=== PATIENT | female | born 1950 | race Caucasian/White ===

== ENCOUNTER 2017-10-21 00:45 | Observation (INO) | payer MEDICARE, MEDICAID ==
[2017-10-21] VITALS (9 sets, daily range): BP systolic 108–180; BP diastolic 58–90; PULSE 72–98; RESP 17–28; TEMP 97.4–98.6; O2SAT 94–99
[~2017-10-21] VITALS: Ht 172.7 cm; Wt 97.0 kg
[~2017-10-21 00:45] MED LIST: ACYC-101 PO; CARV3.125 PO; FURO1TAB62 PO; GABA100C4 PO; LOSA25TA PO; PANT40TA3 PO; PERC10TA27 PO; PRAV10TA PO; XARE20TA PO
--- NOTE | 2017-10-21 00:55 | PD ---
HPI Chief Complaint: Chest Pain Time Seen by Provider: 00:47 Travel History International Travel<30 days: No Contact w/Intl Traveler<30days: No Traveled to known affect area: No History of Present Illness HPI 67 y/o female presents with central chest pain and shortness of breath for the past couple days. She states that earlier this evening at 8 PM she went to an urgent care and had a EKG that was abnormal and was advised to come here to the ER. She states she did not want to come by ambulance and was just able to get around to it now. She states she did not take an aspirin yet today. She denies any other concurrent complaints. She states she had heart stents in 2015 with the [facility] heart group. She states out in [place] in July she was told she had a heart attack but did not get another stent. She denies specific modifying factors. Quality is pressure. Severity is moderate. PFSH Past Medical History Hx Anticoagulant Therapy: Yes (XARELTO) Asthma: No Autoimmune Disease: No Anxiety: No Depression: No Heart Rhythm Problems: No Cancer: Yes (L BREAST CA; LUMPECTOMY) Cardiac Catheterization: Yes Cardiovascular Problems: Yes High Cholesterol: Yes Chemotherapy: No Cerebrovascular Accident: Yes Diabetes: No Diminished Hearing: No Diverticulitis: Yes Endocrine: No Gastrointestinal Disorders: No GERD: No Glaucoma: No Genitourinary: Yes (UTI'S) Headaches: No Hepatitis: No Hiatal Hernia: Yes Hypertension: Yes Immune Disorder: No Implanted Vascular Access Dvce: No Musculoskeletal: No Neurologic: Yes (PT REPORTS HX OF STROKE X2 2012) Psychiatric: No Reproductive: No Respiratory: No Integumentary: Yes (CHRONIC RASH) Immunizations Current: No Migraines: No Radiation Therapy: Yes Renal Failure: Yes (HX OF HOSPITALIZED LAST YEAR) Seizures: No Thyroid Disease: No Ulcer: No ?: Not Menopausal: Yes : 4 Para: 3 Miscarriage: 1 Past Surgical History Cardiac Surgery: No Coronary Stent: Yes (2) Eye Surgery: Yes (CATARACT RIGHT) Gynecologic Surgery: No Hysterectomy: No Pacemaker: No Tonsillectomy: Yes Other Surgery: Yes (LUMPECTOMY) Social History Alcohol Use: No Tobacco Use: No Substance Use: No Allergies-Medications (Allergen,Severity, Reaction): Coded Allergies: diphenhydramine (Unverified Adverse Reaction, Severe, Migraine, 04/04/17) MIGRAINE lorazepam (Unverified Adverse Reaction, Severe, Psychosis, 04/04/17) PSYCH SYMPTOMS Reported Meds & Prescriptions Reported Meds & Active Scripts Active Percocet (Oxycodone-Acetaminophen) 10-325 mg Tab 1 Tab PO Q6H PRN Reported Prednisone 20 Mg Tab 20 Mg PO DAILY Aspirin 81 Mg Chew 81 Mg CHEW DAILY Coreg (Carvedilol) 3.125 Mg Tab 3.125 Mg PO BID Review of Systems Except as stated in HPI: all other systems reviewed are Neg Physical Exam Narrative GENERAL: 67-year-old female in no apparent distress SKIN: Focused skin assessment warm/dry. HEAD: Atraumatic. Normocephalic. EYES: No scleral icterus. No injection or drainage. ENT: No nasal bleeding or discharge. Mucous membranes pink and moist. NECK: Trachea midline. No JVD. CARDIOVASCULAR: Regular rate and rhythm. RESPIRATORY: No accessory muscle use. Clear to auscultation. Breath sounds equal bilaterally. GASTROINTESTINAL: Abdomen soft, non-tender, nondistended. MUSCULOSKELETAL: No obvious deformities. No clubbing. No cyanosis. NEUROLOGICAL: Awake and alert. Motor grossly within normal limits. Normal speech. PSYCHIATRIC: Appropriate mood and affect; insight and judgment normal. Data Data Last Documented VS Vital Signs Date Time Temp Pulse Resp B/P (MAP) Pulse Ox O2 Delivery O2 Flow Rate FiO2 10/21/17 02:31 98.6 83 20 144/77 (99) 98 Room Air Orders Orders Electrocardiogram (10/21/17 00:47) B-Type Natriuretic Peptide (10/21/17 00:47) Ckmb (Isoenzyme) Profile (10/21/17 00:47) Complete Blood Count With Diff (10/21/17 00:47) Comprehensive Metabolic Panel (10/21/17 00:47) D-Dimer (10/21/17 00:47) Magnesium (Mg) (10/21/17 00:47) Prothrombin Time / Inr (Pt) (10/21/17 00:47) Act Partial Throm Time (Ptt) (10/21/17 00:47) Troponin I (10/21/17 00:47) Chest, Single Ap (10/21/17 00:47) Ecg Monitoring (10/21/17 00:47) Bilateral Bp Monitoring (10/21/17 00:47) Iv Access Insert/Monitor (3/3/18 00:47) Oximetry (10/21/17 00:47) Aspirin (Aspirin) (10/21/17 01:00) Sodium Chloride 0.9% Flush (Ns Flush) (10/21/17 01:00) Nitroglycerin Sl (Nitrostat Sl) (10/21/17 01:00) Ct Pulmonary Angiogram (10/21/17 01:54) Morphine Inj (Morphine Inj) (10/21/17 02:45) Ondansetron Inj (Zofran Inj) (10/21/17 02:45) Iohexol 350 Inj (Omnipaque 350 Inj) (10/21/17 02:48) Admit Order (Ed Use Only) (10/21/17 03:18) Activity Bed Rest With Brp (10/21/17 03:18) Vital Signs (Adult) Q4H (10/21/17 03:18) Cardiac Rhythm .As Directed (10/21/17 03:18) Notify Dr: Other .PRN (10/21/17 03:18) Notify DrQueenie Parameters (10/21/17 03:18) Resp Oxygen Nasal Cannula (10/21/17 ) Ckmb (Isoenzyme) Profile (10/21/17 03:18) Ckmb (Isoenzyme) Profile (10/21/17 06:18) Troponin I (10/21/17 03:18) Troponin I (10/21/17 06:18) Electrocardiogram (10/21/17 03:18) Electrocardiogram (10/21/17 06:18) ^ Obtain (10/21/17 03:18) Sodium Chloride 0.9% Flush (Ns Flush) (10/21/17 03:30) Sodium Chloride 0.9% Flush (Ns Flush) (10/21/17 09:00) Acupressure Therapist / Telemetry MARA.Q8H (10/21/17 03:18) Labs Laboratory Tests Test 10/21/17 00:50 White Blood Count 6.2 TH/MM3 Red Blood Count 4.18 MIL/MM3 Hemoglobin 12.6 GM/DL Hematocrit 37.3 % Mean Corpuscular Volume 89.2 FL Mean Corpuscular Hemoglobin 30.1 PG Mean Corpuscular Hemoglobin Concent 33.7 % Red Cell Distribution Width 16.1 % Platelet Count 223 TH/MM3 Mean Platelet Volume 8.2 FL Neutrophils (%) (Auto) 59.7 % Lymphocytes (%) (Auto) 28.2 % Monocytes (%) (Auto) 9.6 % Eosinophils (%) (Auto) 1.7 % Basophils (%) (Auto) 0.8 % Neutrophils # (Auto) 3.7 TH/MM3 Lymphocytes # (Auto) 1.8 TH/MM3 Monocytes # (Auto) 0.6 TH/MM3 Eosinophils # (Auto) 0.1 TH/MM3 Basophils # (Auto) 0.0 TH/MM3 CBC Comment DIFF FINAL Differential Comment Prothrombin Time 10.0 SEC Prothromb Time International Ratio 1.0 RATIO Activated Partial Thromboplast Time 24.3 SEC D-Dimer Quantitative (PE/DVT) 0.72 MG/L FEU Blood Urea Nitrogen 26 MG/DL Creatinine 1.10 MG/DL Random Glucose 118 MG/DL Total Protein 6.7 GM/DL Albumin 3.5 GM/DL Calcium Level 8.6 MG/DL Magnesium Level 1.7 MG/DL Alkaline Phosphatase 47 U/L Aspartate Amino Transf (AST/SGOT) 19 U/L Alanine Aminotransferase (ALT/SGPT) 25 U/L Total Bilirubin 0.3 MG/DL Sodium Level 142 MEQ/L Potassium Level 4.1 MEQ/L Chloride Level 110 MEQ/L Carbon Dioxide Level 22.5 MEQ/L Anion Gap 10 MEQ/L Estimat Glomerular Filtration Rate 50 ML/MIN Total Creatine Kinase 72 U/L Troponin I LESS THAN 0.02 NG/ML B-Type Natriuretic Peptide 61 PG/ML MDM Medical Decision Making Medical Screen Exam Complete: Yes Emergency Medical Condition: Yes Medical Record Reviewed: Yes (pmh confirmed) Interpretation(s) CBC & BMP Diagram 10/21/17 00:50 Total Protein 6.7, Albumin 3.5, Calcium Level 8.6, Magnesium Level 1.7, Alkaline Phosphatase 47, Aspartate Amino Transf (AST/SGOT) 19, Alanine Aminotransferase (ALT/SGPT) 25, Total Bilirubin 0.3 ct chest no pe Differential Diagnosis musculoskeletal, mi, gastritis..... Narrative Course will check labs, cxr and dose with aspirin and nitro and reeval ed workup no acute, agrees to [facility] observation Diagnosis Primary Impression: Chest pain Qualified Codes: R07.9 - Chest pain, unspecified Admitting Information Admitting Physician Requests: Observation Areli Calloway MD Oct 21, 2017 00:55
[2017-10-21] MEDS ORDERED: NITROGLYCERIN 0.4 MG SL 25 TABS/BTL SL ONE (01:00)
[2017-10-21] MEDS ORDERED: ASPIRIN 325 MG TAB PO ONE (01:00)
[2017-10-21] MEDS ORDERED: SODIUM CHLORIDE 0.9% FLUSH 10 ML FLUSH IVF PRN (01:00)
[2017-10-21 01:08] LABS: AUTOMATED NEUTROPHIL # 3.7 TH/MM3 (1.8-7.7); BASOPHIL % 0.8 % (0.0-2.0); EOSINOPHIL # 0.1 TH/MM3 (0-0.4); EOSINOPHIL % 1.7 % (0.0-4.0); HEMATOCRIT 37.3 % (35.0-46.0); HEMOGLOBIN 12.6 GM/DL (11.6-15.3); LYMPH % 28.2 % (9.0-44.0); LYMPHOCYTE # 1.8 TH/MM3 (1.0-4.8); MEAN CELL VOLUME 89.2 FL (80.0-100.0); MEAN CORPUSCULAR HEMOGLOBIN 30.1 PG (27.0-34.0); MEAN CORPUSCULAR HGB CONC 33.7 % (32.0-36.0); MEAN PLATELET VOLUME 8.2 FL (7.0-11.0); MONO % 9.6 % (0.0-8.0); MONOCYTE # 0.6 TH/MM3 (0-0.9); NEUT % 59.7 % (16.0-70.0); PLATELET COUNT 223 TH/MM3 (150-450); RED BLOOD COUNT 4.18 MIL/MM3 (4.00-5.30); RED CELL DISTRIBUTION WIDTH 16.1 % (11.6-17.2); WHITE BLOOD COUNT 6.2 TH/MM3 (4.0-11.0)
[2017-10-21] MEDS ORDERED: PRED20 PO (01:20)
[2017-10-21] MEDS ORDERED: ASPI-516 CHEW (01:20)
--- NOTE | 2017-10-21 01:38 | RADRPT ---
EXAM DATE/TIME: 10/21/2017 00:59 [facility] COMPARISON: CT THORAX W/O CONTRAST, July 31, 2016, 17:17. CHEST SINGLE AP, July 31, 2016, 14:02. INDICATIONS : Chest pain. MEDICAL HISTORY : Hypertension. Hypercholesterolemia. Carcinoma, breast. Cardiovascular disease. Pulmonary embolism . Myocardial infarction. SURGICAL HISTORY : Stents. Left breast lumpectomy. ENCOUNTER: Initial ACUITY: 2 days PAIN SCORE: 9/10 LOCATION: Left chest FINDINGS: A single view of the chest demonstrates the lungs to be symmetrically aerated without evidence of mas s, infiltrate or effusion. The cardiomediastinal contours are unremarkable. Osseous structures are intact. CONCLUSION: The lungs are clear. Indra Stafford MD on October 21, 2017 at 1:37 Board Certified Radiologist. This report was verified electronically.
[2017-10-21 01:40] LABS: ALBUMIN 3.5 GM/DL (3.4-5.0); ALT (GPT) 25 U/L (10-53); AST (GOT) 19 U/L (15-37); BICARBONATE 22.5 MEQ/L (21.0-32.0); BLOOD UREA NITROGEN 26 MG/DL (7-18); CALCIUM 8.6 MG/DL (8.5-10.1); CHLORIDE 110 MEQ/L (98-107); GLOMERULAR FILTRATION RATE 50 ML/MIN (>89); GLUCOSE,RANDOM 118 MG/DL (74-106); MAGNESIUM 1.7 MG/DL (1.5-2.5); SODIUM (NA) 142 MEQ/L (136-145)
[2017-10-21 01:42] LABS: ALKALINE PHOSPHATASE 47 U/L (45-117); TOTAL BILIRUBIN ADULT 0.3 MG/DL (0.2-1.0); TOTAL PROTEIN 6.7 GM/DL (6.4-8.2); TROPONIN I LESS THAN 0.02 NG/ML (0.02-0.05)
[2017-10-21 01:52] LABS: D-DIMER 0.72 MG/L FEU (0.00-0.50)
[2017-10-21] MEDS ORDERED: ONDANSETRON HCL 4 MG/2 ML VIAL IV PUSH ONE (02:45)
[2017-10-21] MEDS ORDERED: MORPHINE SULFATE 4 MG/ML INJ IV PUSH ONE (02:45)
[2017-10-21] MEDS ORDERED: IOHEXOL 350 MG/ML 10 ML VIAL (for RAD DIAG) IVCONTRAST ONE (02:48)
--- NOTE | 2017-10-21 03:09 | RADRPT ---
EXAM DATE/TIME: 10/21/2017 02:38 [facility] COMPARISON: CT PULMONARY ANGIOGRAM, June 13, 2015, 21:25. INDICATIONS : Chest pain. IV CONTRAST: 71 cc Omnipaque 350 (iohexol) IV RADIATION DOSE: 10.56 CTDIvol (mGy) MEDICAL HISTORY : Hypertension. Pulmonary embolism in 2014 SURGICAL HISTORY : Lumpectomy. ENCOUNTER: Initial ACUITY: 1 day PAIN SCALE: 7/10 LOCATION: chest TECHNIQUE: Volumetric scanning of the chest was performed using a pulmonary embolism protocol MIP images were re constructed. Using automated exposure control and adjustment of the mA and/or kV according to patien t size, radiation dose was kept as low as reasonably achievable to obtain optimal diagnostic quality images. DICOM format image data is available electronically for review and comparison. Follow-up recommendations for detected pulmonary nodules are based at a minimum on nodule size and pa tient risk factors according to Fleischner Society Guidelines. FINDINGS: PULMONARY ARTERIES: No filling defects are seen in the pulmonary arteries through the segmental level. LUNGS: There is no consolidation or pneumothorax . No concerning pulmonary nodule is visualized. PLEURAE: There is no pleural thickening or pleural effusion. MEDIASTINUM: There is good visualization of the great vessels of the middle mediastinum. No evidence of mediastin al or hilar adenopathy/mass. CONCLUSION: The study is negative for pulmonary embolism. Indra Stafford MD on October 21, 2017 at 3:06 Board Certified Radiologist. This report was verified electronically.
[2017-10-21] MEDS ORDERED: SODIUM CHLORIDE 0.9% FLUSH 10 ML FLUSH IV FLUSH PRN (03:30)
[2017-10-21 04:24] LABS: TROPONIN I LESS THAN 0.02 NG/ML (0.02-0.05)
[2017-10-21 08:19] LABS: TROPONIN I LESS THAN 0.02 NG/ML (0.02-0.05)
[2017-10-21] MEDS ORDERED: SODIUM CHLORIDE 0.9% FLUSH 10 ML FLUSH IV FLUSH SCH (09:00)
--- NOTE | 2017-10-21 12:13 | HHI.HP ---
HPI Service Chest pain center Primary Care Physician Dominic Baca MD (in [place] based physician) no local physician Chief Complaint Multiple complaints including chest pain shortness of breath History of Present Illness 67-year-old woman who is tearful, obviously anxious, and a very poor historian. She gives a rambling history starting with the fact that she was supposedly right by to transport workers in July. She states that this is under investigation. It seems that she has been having ongoing severe right-sided headaches chest pain and shortness of breath relatively constantly since July. She went to an urgent care center last night and after reviewing an EKG was told to come emergently to the hospital. She has a history of known coronary disease having had an STD SD in July of last year. She was found to have a totally occluded LAD and underwent stenting by Dr. riggins. She had successful placement of a [id number] stent. She subsequently been seen in the chest pain center by Dr. Charles with a negative evaluation. She also has a history of pulmonary emboli but has had subsequent chest scans including on current admission which have been negative. Her complaints of chest discomfort are predominantly sub-diaphragmatic and low midsternal, episodes lasting 20 minutes or more, described as severe impression pressure-like. She cannot identify precipitating or relieving factors but has these very frequently. She also complains of being severely short of breath "cannot breathe" however with negative scans and current oximetries of [id number] [phone] this is difficult to document. She also claims that she had a fall apparently in 1 of the hospitals striking her head and has had constant right-sided severe headaches since that time. She has been followed at different times by Dr. vaishnavi Phillips in 1 of the doctors at [facility] heart group but follows up with no one she is being seen by a therapist at [facility] and [facility] but the diagnosis is unknown. Review of Systems Consitutional: COMPLAINS OF: Fatigue HEENT: COMPLAINS OF: Lightheadedness Respiratory: COMPLAINS OF: Shortness of breath Cardiovascular: COMPLAINS OF: See HPI Gastrointestinal: COMPLAINS OF: Nausea Neurologic: COMPLAINS OF: Tingling or numbness Psychiatric: COMPLAINS OF: Anxiety, Depression Past Family Social History Allergies: Coded Allergies: diphenhydramine (Unverified Adverse Reaction, Severe, Migraine, 04/04/17) MIGRAINE lorazepam (Unverified Adverse Reaction, Severe, Psychosis, 04/04/17) PSYCH SYMPTOMS Past Medical History Coronary artery disease status post stent in the LAD Pulmonary emboli Chronic headache Hypertension Shingles Chronic renal failure Questionable pulmonary nodule PTSD? Stroke 2 in 2013 Past Surgical History Right cataract Breast lumpectomy T&A Reported Medications Reported Meds & Active Scripts Active Percocet (Oxycodone-Acetaminophen) 10-325 mg Tab 1 Tab PO Q6H PRN Reported Prednisone 20 Mg Tab 20 Mg PO DAILY Aspirin 81 Mg Chew 81 Mg CHEW DAILY Coreg (Carvedilol) 3.125 Mg Tab 3.125 Mg PO BID Active Ordered Medications Current Medications Medications (Trade) Dose Ordered Sig/Anjali Route Start Time Stop Time Status Last Admin (NS Flush) 2 ml UNSCH PRN IVF 10/21/17 01:00 (NS Flush) 2 ml UNSCH PRN IV FLUSH 10/21/17 03:30 (NS Flush) 2 ml BID IV FLUSH 10/21/17 09:00 Family History Not obtained as not pertinent 2 current visit Social History Denies alcohol tobacco and drugs. However had a previous positive drug screen and she claims she has no idea how he got in her system. Physical Exam Vital Signs Vital Signs Date Time Temp Pulse Resp B/P (MAP) Pulse Ox O2 Delivery O2 Flow Rate FiO2 10/21/17 11:45 97.4 75 18 135/70 (91) 96 10/21/17 07:58 97.4 72 20 108/59 (75) 94 10/21/17 07:47 72 10/21/17 04:33 76 10/21/17 04:25 97.9 75 17 108/58 (75) 95 10/21/17 03:42 20 10/21/17 03:23 98 10/21/17 02:31 98.6 83 20 144/77 (99) 98 Room Air 10/21/17 01:20 22 10/21/17 00:54 28 99 Room Air 10/21/17 00:54 95 150/76 (100) 10/21/17 00:49 98.6 98 28 180/90 (120) 99 Physical Exam GENERAL: Tearful anxious and possibly confused SKIN: Warm and dry. HEAD: Atraumatic. Normocephalic. No bruits EYES: Pupils equal and round. Right IOL, conjunctiva slightly injected no scleral icterus. ENT: No nasal bleeding or discharge. Mucous membranes pink and moist. NECK: Trachea midline. No JVD. No bruit CARDIOVASCULAR: Regular rate and rhythm. RESPIRATORY: No accessory muscle use. Clear to auscultation. Breath sounds equal bilaterally. No rales wheezes or rhonchi GASTROINTESTINAL: Abdomen soft, non-tender, nondistended. Hepatic and splenic margins not palpable. MUSCULOSKELETAL: Extremities without clubbing, cyanosis, or edema. No obvious deformities. NEUROLOGICAL: Awake and alert. No obvious cranial nerve deficits. Motor grossly within normal limits. PSYCHIATRIC: Appears anxious almost agitated, complains of severe pain and asking for pain medication. Laboratory Laboratory Tests Test 10/21/17 00:50 10/21/17 03:35 10/21/17 06:38 White Blood Count 6.2 Red Blood Count 4.18 Hemoglobin 12.6 Hematocrit 37.3 Mean Corpuscular Volume 89.2 Mean Corpuscular Hemoglobin 30.1 Mean Corpuscular Hemoglobin Concent 33.7 Red Cell Distribution Width 16.1 Platelet Count 223 Mean Platelet Volume 8.2 Neutrophils (%) (Auto) 59.7 Lymphocytes (%) (Auto) 28.2 Monocytes (%) (Auto) 9.6 Eosinophils (%) (Auto) 1.7 Basophils (%) (Auto) 0.8 Neutrophils # (Auto) 3.7 Lymphocytes # (Auto) 1.8 Monocytes # (Auto) 0.6 Eosinophils # (Auto) 0.1 Basophils # (Auto) 0.0 CBC Comment DIFF FINAL Differential Comment Prothrombin Time 10.0 Prothromb Time International Ratio 1.0 Activated Partial Thromboplast Time 24.3 D-Dimer Quantitative (PE/DVT) 0.72 Blood Urea Nitrogen 26 Creatinine 1.10 Random Glucose 118 Total Protein 6.7 Albumin 3.5 Calcium Level 8.6 Magnesium Level 1.7 Alkaline Phosphatase 47 Aspartate Amino Transf (AST/SGOT) 19 Alanine Aminotransferase (ALT/SGPT) 25 Total Bilirubin 0.3 Sodium Level 142 Potassium Level 4.1 Chloride Level 110 Carbon Dioxide Level 22.5 Anion Gap 10 Estimat Glomerular Filtration Rate 50 Total Creatine Kinase 72 50 52 Troponin I LESS THAN 0.02 LESS THAN 0.02 LESS THAN 0.02 B-Type Natriuretic Peptide 61 Result Diagram: 10/21/17 0050 10/21/[address] of the chest negative and chest x-ray negative Course Patient with known coronary artery disease status post successful stenting of the LAD. She continues with complaints of severe headache shortness of breath and chest pain in spite of negative evaluation. She continues to request pain medication. She has had negative evaluation since her stenting but because of her continued complaints repeat Lexiscan will be obtained today prior to discharge. Caprini VTE Risk Assessment Caprini VTE Risk Assessment: No/Low Risk (score <= 1) VTE Pharm Contraindication: Caprini Risk Assessment Model Point Value = 1 Point Value = 2 Point Value = 3 Point Value = 5 Age 41-60 Minor surgery BMI > 25 kg/m2 Swollen legs Varicose veins or History of unexplained or recurrent spontaneous Oral contraceptives or hormone replacement Sepsis (< 1 month) Serious lung disease, including pneumonia (< 1 month) Abnormal pulmonary function Acute myocardial infarction Congestive heart failure (< 1 month) History of inflammatory bowel disease Medical patient at bed rest Age 61-74 Arthroscopic surgery Major open surgery (> 45 min) Laparoscopic surgery (> 45 min) Malignancy Confined to bed (> 72 hours) Immobilizing plaster cast Central venous access Age >= 75 History of VTE Family history of VTE Factor V Leiden Prothrombin [id number] Lupus anticoagulant Anticardiolipin antibodies Elevated serum homocysteine Heparin-induced thrombocytopenia Other congenital or acquired thrombophilia Stroke (< 1 month) Elective arthroplasty Hip, pelvis, or leg fracture Acute spinal cord injury (< 1 month) Prophylaxis Regimen Total Risk Factor Score Risk Level Prophylaxis Regimen 0-1 Low Early ambulation 2 Moderate Order ONE of the following: *Sequential Compression Device (SCD) *Heparin 5000 units SQ BID 3-4 Higher Order ONE of the following medications: *Heparin 5000 units SQ TID *Enoxaparin/Lovenox 40 mg SQ daily (WT < 150 kg, CrCl > 30 mL/min) *Enoxaparin/Lovenox 30 mg SQ daily (WT < 150 kg, CrCl > 10-29 mL/min) *Enoxaparin/Lovenox 30 mg SQ BID (WT < 150 kg, CrCl > 30 mL/min) AND/OR *Sequential Compression Device (SCD) 5 or more Highest Order ONE of the following medications: *Heparin 5000 units SQ TID (Preferred with Epidurals) *Enoxaparin/Lovenox 40 mg SQ daily (WT < 150 kg, CrCl > 30 mL/min) *Enoxaparin/Lovenox 30 mg SQ daily (WT < 150 kg, CrCl > 10-29 mL/min) *Enoxaparin/Lovenox 30 mg SQ BID (WT < 150 kg, CrCl > 30 mL/min) AND *Sequential Compression Device (SCD) Assessment and Plan Problem List: (1) Chest pain ICD Codes: R07.9 - Chest pain, unspecified Status: Acute Plan: Rule out using chest pain center protocol and evaluate with Nicole prior to discharge (2) Chronic kidney disease, stage II (mild) ICD Codes: N18.2 - Chronic kidney disease, stage II (mild) Status: Chronic (3) Ischemic cardiomyopathy ICD Codes: I25.5 - Ischemic cardiomyopathy Status: Chronic (4) Pulmonary embolism ICD Codes: I26.99 - Other pulmonary embolism without acute cor pulmonale Status: Resolved (5) CAD (coronary artery disease) ICD Codes: I25.10 - Atherosclerotic heart disease of [place] coronary artery without angina pectoris Status: Chronic (6) Hypertension ICD Codes: I10 - Essential (primary) hypertension Status: Chronic (7) Hyperlipidemia ICD Codes: E78.5 - Hyperlipidemia, unspecified Status: Chronic (8) Renal insufficiency ICD Codes: N28.9 - Disorder of kidney and ureter, unspecified Status: Chronic (9) Hx pulmonary embolism ICD Codes: Z86.711 - Personal history of pulmonary embolism Status: Resolved Problem Qualifiers (1) Chest pain: Qualified Codes: R07.9 - Chest pain, unspecified (2) Pulmonary embolism: Conrado Harris MD Oct 21, 2017 12:13
[2017-10-21] MEDS ORDERED: ACETAMINOPHEN/CODEINE 300 MG/30 MG TAB PO PRN (13:15)
--- NOTE | 2017-10-21 13:16 | EKG ---
Date Performed: 10/21/2017 Time Performed: 06:29:22 PTAGE: 67 years EKG: Sinus rhythm LOW QRS VOLTAGE IN PRECORDIAL LEADS MINIMAL VOLTAGE CRITERIA FOR LVH, CONSIDER NORMAL VARIANT ANTERI OR SEPTAL UT AGE UNDETERMINID NO SIG CHANGE PREVIOUS TRACING : 10/21/2017 03.36 DOCTOR: Conrado Harris Interpretating Date/Time 10/21/2017 13:15:22
--- NOTE | 2017-10-21 13:17 | EKG ---
Date Performed: 10/21/2017 Time Performed: 03:36:05 PTAGE: 67 years EKG: Sinus rhythm LOW QRS VOLTAGE IN PRECORDIAL LEADS VOLTAGE CRITERIA FOR LVH POSSIBLE ANTEROSEPTAL MYOCARDIAL INFARC TION ABNORMAL ECG NO SIG CHANGE PREVIOUS TRACING : 10/21/2017 00.41 DOCTOR: Conrado Harris Interpretating Date/Time 10/21/2017 13:16:49
--- NOTE | 2017-10-21 13:28 | EKG ---
Date Performed: 10/21/2017 Time Performed: 00:41:52 PTAGE: 67 years EKG: Sinus rhythm LOW QRS VOLTAGE IN PRECORDIAL LEADS LEFT VENTRICULAR HYPERTROPHY AND ST-T CHANGE POSSIBLE SEPTAL KAY CARDIAL INFARCTION ABNORMAL ECG INTERPRETATION BASED ON A DEFAULT AGE OF 40 YEARS NO SIG CHANGES PREVIOUS TRACING : 07/31/2016 20.48 DOCTOR: Conrado Harris Interpretating Date/Time 10/21/2017 13:26:16
[2017-10-21] MEDS ORDERED: REGADENOSON INJ 0.4 MG/5 ML SYR ONE (14:09)
[2017-10-21] MEDS ORDERED: MORPHINE SULFATE 2 MG/ML INJ IV PUSH PRN (15:30)
--- NOTE | 2017-10-21 15:54 | RADRPT ---
EXAM DATE/TIME: 10/21/2017 13:59 [facility] COMPARISON: No previous studies available for comparison. INDICATIONS : Chest pain. Stent. DOSE: 25.4 mCi Tc99m Myoview at stress. 8.8 mCi Tc99m Myoview at rest. 0.4 mg Lexiscan STRESS SYMPTOMS: Shortness of breath, chest pain, nausea, headache. EJECTION FRACTION: 29% MEDICAL HISTORY : Hypertension. Diverticulitis. Hernia, hiatal. Left breast cancer. SURGICAL HISTORY : Coronary artery stent. Tonsillectomy. ENCOUNTER: Initial ACUITY: 1 day PAIN SCALE: 4/10 LOCATION: chest TECHNIQUE: The patient underwent pharmacologic stress with infusion of prescribed dose. Continuous ECG tracing was monitored during stress. Gated SPECT imaging was performed after stress and conventional SPECT i maging was performed at rest. The examination was performed on a SPECT/CT scanner, both attenuation and non-corrected datasets were reviewed. FINDINGS: There is dilatation of the ventricular cavity with moderate global hypokinesis with the inferior sept al wall providing most of the cardiac motion.. At stress the best perfused myocardium is the lateral wall followed by the septum. Large fixed defect is seen in the anterior septal wall. There is minimal small segment redistribution on the stress images in the anterior septal region. CONCLUSION: Ejection fraction 29% with minimal borderline significant redistribution. RISK CATEGORY: High (>3% Annual Mortality Rate) Brnadon Singer MD FACR on October 21, 2017 at 15:48 Board Certified Radiologist. This report was verified electronically.
--- NOTE | 2017-10-21 16:05 | PD.CARD.PN ---
Subjective Subjective Remarks Addendum to previous documentation: Patient was obstreperous and demanding throughout the day. She demanded pain medication for her headache on multiple occasions and became very unhappy with the nurse when she did not get medication quickly. She was initially ordered Tylenol with codeine, she then stated she did not want the codeine just the Tylenol, and refused to go for scanning until she had something for pain. After talking to her she agreed to scanning if she can get pain medication since she got back. On return she demanded food and her pain medication. Morphine had been ordered since she was demanding it but this again caused a delay. She was then out of her room yelling at the nurse calling her rude. I again intervened and tried to explain to the patient that orders have been put in but we still had to wait for medication to arrive. I personally got her a sandwich grapes and to drink but she again wanted coffee. I checked the surrounding units no one had coffee available. I informed the patient that we would get her some as soon as it was available. She then 120 mg of prednisone. I explained that I would not give her prednisone because I was not sure what it was treating with. She said her lungs. I told her that at this point her lungs looked pretty good and did not warrant prednisone. She then said it helped her headache. She then said "I am not going to get any medicine when I leave here am I. I said that if she meant pain medicine probably not. She then said that she was leaving to get the nurse to take her IV out. Before I could return with the nurse she had removed her own IV and asked which way out. Because she had reported she had previously had a fall in an emergency room that was causing her problems I was concerned about her mobility. I put her in a wheelchair and personally wheeled her to the switchboard operator receptionist area. She said someone was on the way to pick her up. She got out of the wheelchair and exited the building safely. The nurse is entering an incident report currently Objective Medications Current Medications Medications (Trade) Dose Ordered Sig/Anjali Route Start Time Stop Time Status Last Admin (NS Flush) 2 ml UNSCH PRN IVF 10/21/17 01:00 (NS Flush) 2 ml UNSCH PRN IV FLUSH 10/21/17 03:30 (NS Flush) 2 ml BID IV FLUSH 10/21/17 09:00 Vital Signs / I&O Vital Signs Date Time Temp Pulse Resp B/P (MAP) Pulse Ox O2 Delivery O2 Flow Rate FiO2 10/21/17 11:45 97.4 75 18 135/70 (91) 96 10/21/17 07:58 97.4 72 20 108/59 (75) 94 10/21/17 07:47 72 10/21/17 04:33 76 10/21/17 04:25 97.9 75 17 108/58 (75) 95 10/21/17 03:42 20 10/21/17 03:23 98 10/21/17 02:31 98.6 83 20 144/77 (99) 98 Room Air 10/21/17 01:20 22 10/21/17 00:54 28 99 Room Air 10/21/17 00:54 95 150/76 (100) 10/21/17 00:49 98.6 98 28 180/90 (120) 99 Physical Exam No additional Laboratory Laboratory Tests Test 10/21/17 00:50 10/21/17 03:35 10/21/17 06:38 White Blood Count 6.2 TH/MM3 Red Blood Count 4.18 MIL/MM3 Hemoglobin 12.6 GM/DL Hematocrit 37.3 % Mean Corpuscular Volume 89.2 FL Mean Corpuscular Hemoglobin 30.1 PG Mean Corpuscular Hemoglobin Concent 33.7 % Red Cell Distribution Width 16.1 % Platelet Count 223 TH/MM3 Mean Platelet Volume 8.2 FL Neutrophils (%) (Auto) 59.7 % Lymphocytes (%) (Auto) 28.2 % Monocytes (%) (Auto) 9.6 % Eosinophils (%) (Auto) 1.7 % Basophils (%) (Auto) 0.8 % Neutrophils # (Auto) 3.7 TH/MM3 Lymphocytes # (Auto) 1.8 TH/MM3 Monocytes # (Auto) 0.6 TH/MM3 Eosinophils # (Auto) 0.1 TH/MM3 Basophils # (Auto) 0.0 TH/MM3 CBC Comment DIFF FINAL Differential Comment Prothrombin Time 10.0 SEC Prothromb Time International Ratio 1.0 RATIO Activated Partial Thromboplast Time 24.3 SEC D-Dimer Quantitative (PE/DVT) 0.72 MG/L FEU Blood Urea Nitrogen 26 MG/DL Creatinine 1.10 MG/DL Random Glucose 118 MG/DL Total Protein 6.7 GM/DL Albumin 3.5 GM/DL Calcium Level 8.6 MG/DL Magnesium Level 1.7 MG/DL Alkaline Phosphatase 47 U/L Aspartate Amino Transf (AST/SGOT) 19 U/L Alanine Aminotransferase (ALT/SGPT) 25 U/L Total Bilirubin 0.3 MG/DL Sodium Level 142 MEQ/L Potassium Level 4.1 MEQ/L Chloride Level 110 MEQ/L Carbon Dioxide Level 22.5 MEQ/L Anion Gap 10 MEQ/L Estimat Glomerular Filtration Rate 50 ML/MIN Total Creatine Kinase 72 U/L 50 U/L 52 U/L Troponin I LESS THAN 0.02 NG/ML LESS THAN 0.02 NG/ML LESS THAN 0.02 NG/ML B-Type Natriuretic Peptide 61 PG/ML Imaging Last [address] Angiography 10/21/17 0154 Signed Impressions: Service Date/Time: Saturday, October 21, 2017 02:38 - CONCLUSION: The study is negative for pulmonary embolism. Indra Stafford MD Chest X-Ray 10/21/17 0047 Signed Impressions: Service Date/Time: Saturday, October 21, 2017 00:59 - CONCLUSION: The lungs are clear. Indra Stafford MD Assessment and Plan Problem List: (1) Chest pain ICD Codes: R07.9 - Chest pain, unspecified Status: Acute (2) Chronic kidney disease, stage II (mild) ICD Codes: N18.2 - Chronic kidney disease, stage II (mild) Status: Chronic (3) Ischemic cardiomyopathy ICD Codes: I25.5 - Ischemic cardiomyopathy Status: Chronic (4) Pulmonary embolism ICD Codes: I26.99 - Other pulmonary embolism without acute cor pulmonale Status: Resolved (5) CAD (coronary artery disease) ICD Codes: I25.10 - Atherosclerotic heart disease of [place] coronary artery without angina pectoris Status: Chronic (6) Hypertension ICD Codes: I10 - Essential (primary) hypertension Status: Chronic (7) Hyperlipidemia ICD Codes: E78.5 - Hyperlipidemia, unspecified Status: Chronic (8) Renal insufficiency ICD Codes: N28.9 - Disorder of kidney and ureter, unspecified Status: Chronic (9) Hx pulmonary embolism ICD Codes: Z86.711 - Personal history of pulmonary embolism Status: Resolved Problem Qualifiers (1) Chest pain: Qualified Codes: R07.9 - Chest pain, unspecified (2) Pulmonary embolism: Conrado Harris MD Oct 21, 2017 16:05
== END 2017-10-21 16:12 | disposition left against medical advice (07) ==
LOC: NEPC 00:45 → NEDA 03:20 → NEPHCDU 03:57
PROVIDERS: ADMIT Internal Medicine Cardiovascular Disease; ATTEND Internal Medicine Cardiovascular Disease
DX: R07.89 Other chest pain (principal); R06.02 Shortness of breath; R51 Headache; R53.83 Other fatigue; R42 Dizziness and giddiness; R11.0 Nausea; R20.2 Paresthesia of skin; I25.10 Atherosclerotic heart disease of native coronary artery without angina pectoris; I25.5 Ischemic cardiomyopathy; I12.9 Hypertensive chronic kidney disease with stage 1 through stage 4 chronic kidney disease, or unspecified chronic kidney disease; N18.2 Chronic kidney disease, stage 2 (mild); E78.00 Pure hypercholesterolemia, unspecified; I25.2 Old myocardial infarction; Z95.5 Presence of coronary angioplasty implant and graft; Z86.711 Personal history of pulmonary embolism; Z79.899 Other long term (current) drug therapy; Z79.82 Long term (current) use of aspirin; Z85.3 Personal history of malignant neoplasm of breast; Z86.73 Personal history of transient ischemic attack (TIA), and cerebral infarction without residual deficits
CPT/HCPCS: 71045; 71275; 78452; 80053; 82550; 83735; 83880; 84484; 85025; 85379; 85610; 85730; 93005; 93017; 96374; 96375; 99285; A9502; G0378; J2270; J2405; J2785; Q9967

== ENCOUNTER → 2018-01-30 | Outpatient (CLI) | payer MEDICARE, OTHER ==
[~2018-01-30] VITALS: Ht 172.7 cm; Wt 93.0 kg
[~2018-01-30] MED LIST changes: -ACYC-101 PO; +ASPI-516 CHEW; +CHLORHEXIDINE GLUCONATE 2 % 1 PACK (2 CLOTHS) TOPICAL PRN; -FURO1TAB62 PO; -GABA100C4 PO; +INSULIN HUMAN REGULAR 1,000 UNITS/10 ML VIAL SQ PRN; +LACTATED RINGER'S 1000 ML IV PRN; +LIDOCAINE HCL 1% PF 5 ML SYRINGE OTHER ONE; -LOSA25TA PO; +METOPROLOL TARTRATE 25 MG TAB PO PRN; -PANT40TA3 PO; +PHENYLEPH/NS 1000 MCG/10 ML SYR IV ONE; +POVIDONE IODINE 5% (ANTISEPSIS KIT) 4 APPLICATIONS EACH NARE PRN; -PRAV10TA PO; +PRED20 PO; +PROPOFOL 200 MG/20 ML AMP IV ONE; +SODIUM CHLORID 0.9% 500 ML IV PRN; +SPIRCAP INH; +VENTAER INH; -XARE20TA PO; +ePHEDrine/NS 25 MG/5 ML SYRINGE IV ONE
--- NOTE | 2018-01-30 11:20 | GIPROC ---
[facility] [address] [facility]. [facility], [address] COLONOSCOPY PROCEDURE REPORT EXAM DATE: 01/30/2018 PATIENT NAME: Patricia Jung MR #: [id number] BIRTHDATE: 1950 ENDOSCOPIST: Nico Braun MD ORDER #: [id number] BLANKER OPERATOR: Ashley Zurita and Charu Meadows STATUS: outpatient INDICATIONS: The patient is a 67 yr old female here for a colonoscopy due to patient's immediate family history of colon cancer MEDICATIONS: None and Per Anesthesia. PREP QUALITY: fair PREP TYPE:GoLytely ESTIMATED BLOOD LOSS: None CONSENT: The patient understands the risks and benefits of the procedure and understands that these risks include, but are not limited to: sedation, allergic reaction, infection, perforation and/or bleeding. Alternative means of evaluation and treatment include, among others: physical exam, x-rays, and/or surgical intervention. The patient elects to proceed with this endoscopic procedure. medical equipment was checked for proper function. Hand hygiene and appropriate measures for infection prevention was taken. After the risks, benefits and alternatives of the procedure were thoroughly explained, Informed consent was verified, confirmed and timeout was successfully executed by the treatment team. A digital exam revealed no abnormalities of the rectum The Pentax [id number] endoscope was introduced through the anus and advanced to the cecum, which was identified by both the appendix and ileocecal valve. The instrument was then slowly withdrawn as the colon was fully examined. COLON FINDINGS: Diverticulum was found in the sigmoid colon, descending colon, and ascending colon with associated petechiae. The opening was large. A medium sized linear half-circumferential patch of colitis was found in the descending colon and at the splenic flexure. The mucosa was ulcerated and edematous. Multiple biopsies were performed using cold forceps. Two polypoid shaped sessile polyps ranging between 3-5mm in size were found in the ascending colon. A polypectomy was performed with cold forceps. The resection was complete and the polyp tissue was completely retrieved. A medium sized smooth and polypoid shaped sessile polyp, measuring 9 mm in size, was found in the transverse colon. A polypectomy was performed with a cold snare. The resection was complete and the polyp tissue was completely retrieved. A medium sized polypoid shaped sessile polyp, measuring 6 mm in size, was found in the sigmoid colon. A polypectomy was performed with a cold snare. The resection was complete and the polyp tissue was completely retrieved. Large internal hemorrhoids were found. Retroflexed views revealed no abnormalities The scope was then completely withdrawn from the patient and the procedure terminated. PROCEDURE WITHDRAWAL TIME:10minutes ADVERSE EVENTS: There were no complications. IMPRESSIONS: 1. 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, descending colon, and ascending colon 2. Medium sized linear half-circumferential colitis was found in the descending colon and at the splenic flexure; The mucosa was ulcerated and edematous; multiple biopsies were performed using cold forceps 3. Two sessile polyps ranging between 3-5mm in size were found in the ascending colon; polypectomy was performed with cold forceps 4. A medium sized sessile polyp was found in the transverse colon; polypectomy was performed with a cold snare 5. A medium sized sessile polyp was found in the sigmoid colon; polypectomy was performed with a cold snare 6. Large internal hemorrhoids RECOMMENDATIONS: 1. Await biopsy results. Biopsy results will not be ready for 7-10 days. If you don't hear from us in two weeks, call our office for results. 2. Continue surveillance 3. No seeds, nuts and popcorn in diet 4. High fiber diet RECALL: Return 3 years Colonoscopy Nico Braun MD eSigned: Nico Braun MD 01/30/2018 11:19 AM cc: PATIENT NAME: Patricia Jung MR#: [id number]
[2018-01-30 11:28] VITALS: BP 101/62; PULSE 69; RESP 18; TEMP 97.6; O2SAT 94
== END ==
LOC: HEND 08:21
PROVIDERS: ATTEND Specialist
DX: D12.2 Benign neoplasm of ascending colon (principal); D12.3 Benign neoplasm of transverse colon; K63.5 Polyp of colon; K64.8 Other hemorrhoids; K52.9 Noninfective gastroenteritis and colitis, unspecified; K57.30 Diverticulosis of large intestine without perforation or abscess without bleeding; Z85.3 Personal history of malignant neoplasm of breast; G45.9 Transient cerebral ischemic attack, unspecified; I25.2 Old myocardial infarction; I10 Essential (primary) hypertension; I20.9 Angina pectoris, unspecified; L30.9 Dermatitis, unspecified; E66.9 Obesity, unspecified
CPT/HCPCS: 00811; 45380; 45385; 88305; J2370; J7120

== ENCOUNTER 2018-03-31 16:45 | Observation (INO) ==
[2018-03-31] MEDS ORDERED: Morphine Inj 4 MG/ML Vial IV.PUSH ONE (17:23)
[2018-03-31 17:42] LABS: Hematocrit 37.1 % (35.0-46.0); Hemoglobin 12.2 gm/dL (11.6-15.3); Mean Corpuscular Hemoglobin 30.4 pg (27.0-34.0); Mean Corpuscular Volume 92.3 fL (80.0-100.0); Mean Platelet Volume 8.7 fL (7.0-11.0); Platelet Count 253 th/mm3 (150-450); Red Blood Count 4.02 mil/mm3 (4.00-5.30); White Blood Count 8.6 th/mm3 (4.0-11.0)
[2018-03-31 17:58] LABS: Activated Partial Thrombo Time 22.4 sec (24.3-30.1); Prothrombin Time 10.6 sec (9.8-11.6)
[2018-03-31 18:20] LABS: Anion Gap 10 meq/L (5-15); Blood Urea Nitrogen 24 mg/dL (7-18); Calcium 8.4 mg/dL (8.5-10.1); Chloride 113 meq/L (98-107); Glomerular Filtration Rate 46 mL/min (>89); Glucose,Random 94 mg/dL (74-106); Potassium 3.4 meq/L (3.5-5.1); Sodium 145 meq/L (136-145)
--- NOTE | 2018-03-31 18:26 | XR ---
EXAM DATE: 03/31/2018 6:17 PM EDT AGE/SEX: 67 years / Female INDICATIONS: . Shortness of breath. CLINICAL DATA: This is the patient's initial encounter. Patient reports that signs and symptoms have been present for 1 day and indicates a pain score of 6/10. MEDICAL/SURGICAL HISTORY: Carcinoma, breast. None. COMPARISON: [facility] [place], CHEST SINGLE AP, 10/21/2017. . FINDINGS: Trace atelectasis of the lung bases. No perceptible effusion. No pneumothorax. Heart size stable, upper limits of normal. CONCLUSION: Minimal bibasilar atelectasis and borderline compensated cardiomegaly. Electronically signed by: Brandon Puente MD 03/31/2018 6:24 PM EDT
--- NOTE | 2018-03-31 18:57 | ED ---
HPI General Chief Complaint: Chest Pain Stated Complaint: chest pain Time Seen by Provider: 03/31/18 17:01 Source: patient Mode of arrival: EMS Limitations: no limitations History of Present Illness HPI narrative: Patient is a 67-year-old female, past medical history significant for coronary artery disease with 2 previous stents, pulmonary embolism, congestive heart failure, not currently on anticoagulants, who presents with complaint of pressure like chest pain that radiates to the left upper extremity and neck that began while walking into an appointment for her dog. This partially improved with rest though not completely. She received nitro prior to arrival after which it greatly improved. She states that she was diaphoretic with severe dyspnea when he began. She denies leg swelling or immobilization. MD complaint: chest pain Complete Quality Measures for STEMI Alert Patients STEMI Alert: No Onset (ago): hour(s) Duration: constant Onset: during rest Pain location: substernal Severity: moderate Quality: heaviness Pain radiation: LUE and neck Relieving factors: nitroglycerin and rest Exacerbating factors: exertion Context: history of DVT/PE Treatments prior to arrival chest pain: nitroglycerin Related Data Home Medications Medication Instructions Recorded Confirmed aspirin [Aspir-81] 81 mg PO DAILY 03/31/18 03/31/18 atorvastatin 20 mg PO DAILY 03/31/18 03/31/18 carvedilol 3.125 mg PO DAILY 03/31/18 03/31/18 furosemide 20 mg PO DAILY 03/31/18 03/31/18 nitroglycerin 0.4 mg SUBLINGUAL Q5-15M PRN 03/31/18 03/31/18 oxycodone-acetaminophen [Percocet] 1 tab PO Q6H PRN 03/31/18 03/31/18 Allergies Allergy/AdvReac Type Severity Reaction Status Date / Time diphenhydramine AdvReac Severe Migraine Unverified 01/30/18 09:02 lorazepam AdvReac Severe Psychosis Unverified 01/30/18 09:02 Review of Systems ROS: all other systems reviewed are negative Constitutional Denies chills and Denies fever(s) Eyes Denies blurry vision ENT Denies nasal congestion Cardiovascular Reports chest pain, Reports chest pain at rest, Reports diaphoresis, Reports radiating jaw, neck or arm pain and Reports dyspnea Respiratory Reports dyspnea Gastrointestinal Denies abdominal pain Genitourinary Denies dysuria Musculoskeletal Denies back pain and Denies neck pain Integumentary/Breasts Denies rash Neurologic Denies headache(s) Psychiatric Denies confusion [facility] Medical History Medical History Arthritis (Acute) Breast cancer (Acute) Heart attack (Acute) Pulmonary embolism (Acute) Shingles (Acute) CHF (congestive heart failure) (Acute) High cholesterol (Acute) Surgical History Surgical History Stented coronary artery (Acute) Social History Social History Substance History: No History of Abuse Second Hand Smoke Exposure: No Smoking Status: Former smoker Tobacco Type: Cigarettes How Often Do You Have a Drink Containing Alcohol: Never Recent Out of Country Travel within the Last 8 Weeks: No Immunization History Tetanus Immunization: <5 Years Hx Influenza Vaccine This Season: Yes Exam Narrative Exam Narrative: GENERAL: Well-appearing, though anxious female in no acute distress SKIN: Focused skin assessment warm/dry. HEAD: Atraumatic. Normocephalic. EYES: Pupils equal and round. No scleral icterus. No injection or drainage. ENT: No nasal bleeding or discharge. Mucous membranes pink and moist. NECK: Trachea midline. No JVD. CARDIOVASCULAR: Regular rate and rhythm. No murmur appreciated. Intact and equal peripheral pulses. RESPIRATORY: No accessory muscle use. Clear to auscultation. Breath sounds equal bilaterally. GASTROINTESTINAL: Abdomen soft, non-tender, nondistended. Hepatic and splenic margins not palpable. MUSCULOSKELETAL: No obvious deformities. No clubbing. No cyanosis. No edema. NEUROLOGICAL: Awake and alert. No obvious cranial nerve deficits. Motor grossly within normal limits. Normal speech. PSYCHIATRIC: Appropriate mood and affect; insight and judgment normal. Course Initial Documented Vital Signs Temperature 97.5 F L 03/31/18 16:52 Pulse Rate 101 H 03/31/18 16:52 Respiratory Rate 18 03/31/18 16:52 Blood Pressure 150/73 H 03/31/18 16:52 Pulse Oximetry 95 03/31/18 16:52 Last Documented Vital Signs Temperature 98.2 F 04/01/18 03:40 Pulse Rate 74 04/01/18 03:40 Respiratory Rate 18 04/01/18 03:40 Blood Pressure 105/70 04/01/18 03:40 Pulse Oximetry 96 04/01/18 03:40 Sign Out Sign Out Data: Patient Sign Out occurred on 03/31/18 at 19:39. Patient's care was discussed, and care was transferred from Monae Kennedy MD to Afshin Roe. Sign Out Comment: CT PE pending. If negative, plan for admission for ACS rule out. Patient aware of plan and agrees. Last updated by Monae Kennedy MD at 03/31/18 18:57 Medical Decision Making MDM Narrative Medical decision making narrative: Patient is a 67-year-old female, past medical history significant for coronary artery disease with 2 previous stents, previous pulmonary embolism, who presents with complaint of pressure-like chest pain that radiates to the neck and shoulder and was relieved with rest and nitroglycerin prior to arrival. She was given aspirin on arrival here. EKG without acute ST or T-wave changes. Chest x-ray and labs including initial troponin otherwise unremarkable (except for bibasilar atelectasis). CT PE pending at time of check out. Differential Diagnosis Differential Diagnosis: Differential includes but is not limited to acute coronary syndrome, aortic dissection, pulmonary embolism, pneumonia, CHF exacerbation. Medical Records Medical records reviewed: Yes I reviewed the patient's medical records. Lab Data Result diagrams: 03/31/18 17:25 03/31/18 17:25 Lab Results 03/31/18 03/31/18 03/31/18 Range/Units 17:25 17:25 17:25 WBC 8.6 (4.0-11.0) th/mm3 RBC 4.02 (4.00-5.30) mil/mm3 Hgb 12.2 (11.6-15.3) gm/dL Hct 37.1 (35.0-46.0) % MCV 92.3 (80.0-100.0) fL MCH 30.4 (27.0-34.0) pg MCHC 33.0 (32.0-36.0) % RDW 16.0 (11.6-17.2) % Plt Count 253 (150-450) th/mm3 MPV 8.7 (7.0-11.0) fL PT 10.6 (9.8-11.6) sec INR 1.0 Ratio APTT 22.4 L (24.3-30.1) sec Sodium 145 (136-145) meq/L Potassium 3.4 L (3.5-5.1) meq/L Chloride 113 H (98-107) meq/L Carbon Dioxide 22.0 (21.0-32.0) meq/L Anion Gap 10 (5-15) meq/L BUN 24 H (7-18) mg/dL Creatinine 1.17 H (0.50-1.00) mg/dL Estimated GFR 46 L (>89) mL/min Random Glucose 94 (74-106) mg/dL Calcium 8.4 L (8.5-10.1) mg/dL Total Creatine Kinase (26-192) U/L Troponin I Less than 0.02 L (0.02-0.05) ng/mL 03/31/18 03/31/18 04/01/18 Range/Units 20:30 20:30 00:30 WBC (4.0-11.0) th/mm3 RBC (4.00-5.30) mil/mm3 Hgb (11.6-15.3) gm/dL Hct (35.0-46.0) % MCV (80.0-100.0) fL MCH (27.0-34.0) pg MCHC (32.0-36.0) % RDW (11.6-17.2) % Plt Count (150-450) th/mm3 MPV (7.0-11.0) fL PT (9.8-11.6) sec INR Ratio APTT (24.3-30.1) sec Sodium (136-145) meq/L Potassium (3.5-5.1) meq/L Chloride (98-107) meq/L Carbon Dioxide (21.0-32.0) meq/L Anion Gap (5-15) meq/L BUN (7-18) mg/dL Creatinine (0.50-1.00) mg/dL Estimated GFR (>89) mL/min Random Glucose (74-106) mg/dL Calcium (8.5-10.1) mg/dL Total Creatine Kinase 63 65 (26-192) U/L Troponin I 0.03 Cancelled Less than 0.02 L (0.02-0.05) ng/mL Imaging Data Attestation: I personally reviewed and interpreted this imaging study as follows : My impression: Bibasilar atelectasis with cardiomegaly but no other acute findings. Radiologist's impression: Chest CTA 03/31/18 17:23 CONCLUSION: 1. No pulmonary embolus. 2. Left ventricular enlargement. Coronary artery calcification. 3. Mild bibasilar atelectasis. Chest X-Ray 03/31/18 17:23 CONCLUSION: Minimal bibasilar atelectasis and borderline compensated cardiomegaly. ECG Data EKG Prior to Arrival: No Attestation: I personally reviewed and interpreted this ECG as follows: (Normal sinus rhythm at a rate of [address] or T-wave changes.) Discharge Plan Discharge Disposition Patient Disposition: 30 Still Patient Discharge Condition Condition: Stable Discharge Details Diagnosis: Chest pain, rule out acute myocardial infarction Physicians Team ED Provider: Afshin Roe Primary Care Provider: Jesus Ceballos Attending Provider: Conrado Harris Status ED Status: Left Department Discharge Information Discharge Date/Time: 04/01/18 00:31
--- NOTE | 2018-03-31 19:22 | CT ---
EXAM DATE: 03/31/2018 7:13 PM EDT AGE/SEX: 67 years / Female INDICATIONS: Chest pain. CLINICAL DATA: This is the patient's initial encounter. Patient reports that signs and symptoms have been present for 1 day and indicates a pain score of 4/10. MEDICAL/SURGICAL HISTORY: Carcinoma, breast. Deep venous thrombosis. None. RADIATION DOSE: 22.96 CTDI (mGy) [place] [facility] [place]21/2017. . TECHNIQUE: Volumetric scanning was performed using a multi-row detector CT scanner during bolus infu baldo of 75 ml Omnipaque 350 (iohexol) nonionic water-soluble contrast as a single exam dose. The loc a was post processed with a variety of visualization algorithms including full volume maximum intensi ty projection and sliding thin slab reformation. Using automated exposure control and adjustment of the mA and/or kV according to patient size, radiation dose was kept as low as reasonably achievable t o obtain optimal diagnostic quality images. DICOM format image data is available electronically for review and comparison. FINDINGS: There is no pulmonary embolus. Trace atelectasis of both lung bases. No pleural effusion or pneumothorax. Left ventricular enlargement noted. There is coronary artery calcification. Coarse, benign-appearing calcification again seen inferiorly in the left breast. CONCLUSION: 1. No pulmonary embolus. 2. Left ventricular enlargement. Coronary artery calcification. 3. Mild bibasilar atelectasis. Electronically signed by: Brandon Puente MD 03/31/2018 7:21 PM EDT
[2018-04-01] MEDS ORDERED: Acetaminophen 325 MG Tablet PO PRN (01:09)
[2018-04-01] MEDS: Morphine Inj 4 MG/ML Vial IV.PUSH PRN ×3 (01:19→11:04)
[2018-04-01 01:26] LABS: Creatine Kinase 65 U/L (26-192)
--- NOTE | 2018-04-01 08:18 | P.HPCA ---
History of Present Illness Primary Care Physician: Jesus Ceballos DO Chief Complaint: Chest pain History of Present Illness: 67 year old history of CAD, hypertension, PE, and CHF presents to ER for further evaluation of chest pain. Onset constant, occurs daily. Increase in severity yesterday afternoon after walking one block. Location left anterior chest. Characterized as tightness. No radiation. Moderate in severity. Associated symptoms included dyspnea and diaphorases. No nausea or vomiting. Continues to experience chest tightness, currently mild. No precipitating or relieving factors. Reports when experiences chest tightness she clenches her chest, takes a nitroglycerin, rests, catches her breath, and 15 minutes later severity improves followed by lingering tightness. Describes PND nightly and orthopedic requiring 2 large pillows in order to rest. Describes sleeping for a couple of hours before awakening "gasping for breath" with an accompanying cough. No wheezing or sputum production during episodes. No recent echocardiogram. No recent pedal edema or weight gain. Recently referred to clinical pharmacy technician and scheduled for a sleep study test next week. History of pulmonary emboli 2016. Endorses frequent bronchitis earlier this year requiring inhalers, antibiotics, and steroids. No recent illness or fever. Fell x2 days ago, reports losing her balance, denies dizziness or syncope episode. Past cardiac testing 05/27/2015 Cardiac catheterization (Dr. Teague) Conclusions: 1. Acute thrombotic occlusion of the proximal left anterior descending coronary artery. 2. Successful rheolytic thrombectomy of the left anterior descending coronary artery. 3. Successful endovascular stenting the bare metal stents to the left anterior descend coronary artery. 10/27/2017 Lexiscan-EF 29% with minimal borderline redistribution. Minimal small segment redistribution on stress anterior septal wall - Diagnosis (1) Chest pain, atypical (2) Congestive heart failure (3) Coronary artery disease Review of Systems All other systems reviewed negative except as stated in HPI PMFSH - History History Provided By: Patient - Medical History Medical History: Medical History (Last Updated 04/01/18 @ 09:21 by MARIANO Montes) Arthritis Breast cancer Heart attack Pulmonary embolism Right cataract Shingles CHF (congestive heart failure) High cholesterol - Surgical History Surgical History: Surgical History (Last Reviewed 03/31/18 @ 18:52 by Monae Kennedy MD) Stented coronary artery - Tobacco History Second Hand Smoke Exposure: No Tobacco Use In Past 30 Days: No Smoking Status: Former smoker Tobacco Type: Cigarettes - Alcohol History How Often Do You Have a Drink Containing Alcohol: Never - Substance Use History Substance History: No History of Abuse - Travel History Recent Travel Out of the Country Within the Last 8 Weeks: No - Immunization History Tetanus Immunization: <5 Years Hx Influenza Vaccine This Season: Yes Medications and Allergies Active Medications: Active Medications Acetaminophen (Tylenol) 650 mg PO Q6H PRN PRN Reason: PAIN OR FEVER Morphine Sulfate (Morphine Inj) 2 mg IV.PUSH Q4H PRN PRN Reason: CHEST PAIN/ PAIN > 5 Last Admin: 04/01/18 04:32 Dose: 2 mg Ondansetron HCl (Zofran Inj) 4 mg IV.PUSH Q6H PRN PRN Reason: NAUSEA OR VOMITING Last Admin: 04/01/18 04:31 Dose: 4 mg Sodium Chloride (Ns Flush) 2 ml IV.FLUSH UNSCH PRN PRN Reason: FLUSH AFTER USING IV ACCESS Last Admin: 04/01/18 01:21 Dose: 2 ml Sodium Chloride (Ns Flush) 2 ml IV.FLUSH BID HUSEYIN Sodium Chloride (Ns Flush) 2 ml IV.FLUSH PRN PRN PRN Reason: FLUSH AFTER USING IV ACCESS Allergies Allergy/AdvReac Type Severity Reaction Status Date / Time diphenhydramine AdvReac Severe Migraine Unverified 01/30/18 09:02 lorazepam AdvReac Severe Psychosis Unverified 01/30/18 09:02 Home Medications Medication Instructions Recorded Confirmed Type aspirin [Aspir-81] 81 mg PO DAILY 03/31/18 03/31/18 History atorvastatin 20 mg PO DAILY 03/31/18 03/31/18 History carvedilol 3.125 mg PO DAILY 03/31/18 03/31/18 History furosemide 20 mg PO DAILY 03/31/18 03/31/18 History nitroglycerin 0.4 mg SUBLINGUAL Q5-15M PRN 03/31/18 03/31/18 History oxycodone-acetaminophen [Percocet] 1 tab PO Q6H PRN 03/31/18 03/31/18 History Exam Vital signs: Vital Signs 03/31/18 16:52 03/31/18 17:02 03/31/18 17:43 Temperature 97.5 F L Pulse Rate 101 H 91 H Respiratory Rate 18 18 Blood Pressure 150/73 H 119/60 Pulse Oximetry 95 96 96 03/31/18 18:00 04/01/18 00:00 04/01/18 00:25 Temperature Pulse Rate 80 73 66 Respiratory Rate 16 Blood Pressure 128/79 Pulse Oximetry 95 04/01/18 00:33 04/01/18 03:40 04/01/18 04:00 Temperature 98.1 F 98.2 F Pulse Rate 76 74 74 Respiratory Rate 18 18 Blood Pressure 128/80 105/70 Pulse Oximetry 96 96 04/01/18 07:52 Temperature 97.5 F L Pulse Rate 80 Respiratory Rate 18 Blood Pressure 113/71 Pulse Oximetry 95 Intake & Output 03/31/18 04/01/18 04/01/18 18:59 06:59 18:59 Intake Total 480 / 480 Balance 480 / 480 Weight 94 kg 93.9 kg Intake: Oral 480 / 480 Other: # Voids 1 # Bowel Movements 0 Weight On Admission 93.9 kg Narrative: GENERAL: Alert WN, WD, NAD, overweight female who appears older than stated age HEAD: NC, AT EYES: Sclera clear, conjunctiva without injection, pupils equal and round ENT: Mucous membranes pink and moist, no nasal discharge or bleeding NECK: Supple, no masses, trachea midline CV: RRR, 2/6 systolic murmur, no rub, gallop, or JVD. No carotid bruits RESP: Clear lungs throughout bilateral, faint crackles Left lobe field during first inspiration only. No wheeze or rhonchi. No symmetrical chest rise, nonlabored, able to speak in full sentences ABD: Soft, NT, ND, no masses, positive bowel tones EXT: Pulses +2x4, no dependent edema MS: Normal tone x4 extremities, nontender, no obvious deformities, full range of motion NEURO: CN II through CN XII grossly intact, motor strength 5/5 PSYCH: A+O x3, pleasant affect, mildly anxious, tearful at times, appropriate speech, mood, questionable insight and judgment SKIN: Normal turgor, normal texture, left anterior albarran large healing bruise, a few scab healing lesions on right anterior albarran Results 03/31/18 17:25 03/31/18 17:25 Cardiac Enzymes 03/31/18 03/31/18 03/31/18 Range/Units 17:25 20:30 20:30 Troponin I Less than 0.02 L 0.03 Cancelled (0.02-0.05) ng/mL 04/01/18 Range/Units 00:30 Troponin I Less than 0.02 L (0.02-0.05) ng/mL Coagulation 03/31/18 Range/Units 17:25 PT 10.6 (9.8-11.6) sec APTT 22.4 L (24.3-30.1) sec CBC 03/31/18 Range/Units 17:25 WBC 8.6 (4.0-11.0) th/mm3 RBC 4.02 (4.00-5.30) mil/mm3 Hgb 12.2 (11.6-15.3) gm/dL Hct 37.1 (35.0-46.0) % Plt Count 253 (150-450) th/mm3 Comprehensive Metabolic Panel 03/31/18 Range/Units 17:25 Sodium 145 (136-145) meq/L Potassium 3.4 L (3.5-5.1) meq/L Chloride 113 H (98-107) meq/L Carbon Dioxide 22.0 (21.0-32.0) meq/L BUN 24 H (7-18) mg/dL Creatinine 1.17 H (0.50-1.00) mg/dL Calcium 8.4 L (8.5-10.1) mg/dL Intake and Output 03/31/18 04/01/18 04/01/18 22:59 06:59 14:59 Intake Total 480 / 480 Balance 480 / 480 Intake: Oral 480 / 480 Other: # Voids 1 # Bowel Movements 0 Weight 94 kg 93.9 kg Weight On Admission 93.9 kg EKG interpretations - EKG EKG results cardiology: sinus rhythm, normal axis, normal QRS (NSR, poor R wave progression) Caprini VTE Risk Assessment Caprini VTE Risk Assessment: Moderate/High Risk (score >= 2) Caprini Risk Assessment Model: Point Value = 1 Point Value = 2 Point Value = 3 Point Value = 5 Age 41-60 Minor surgery BMI > 25 kg/m2 Swollen legs Varicose veins or History of unexplained or recurrent spontaneous Oral contraceptives or hormone replacement Sepsis (< 1 month) Serious lung disease, including pneumonia (< 1 month) Abnormal pulmonary function Acute myocardial infarction Congestive heart failure (< 1 month) History of inflammatory bowel disease Medical patient at bed rest Age 61-74 Arthroscopic surgery Major open surgery (> 45 min) Laparoscopic surgery (> 45 min) Malignancy Confined to bed (> 72 hours) Immobilizing plaster cast Central venous access Age >= 75 History of VTE Family history of VTE Factor V Leiden Prothrombin [id number] Lupus anticoagulant Anticardiolipin antibodies Elevated serum homocysteine Heparin-induced thrombocytopenia Other congenital or acquired thrombophilia Stroke (< 1 month) Elective arthroplasty Hip, pelvis, or leg fracture Acute spinal cord injury (< 1 month) Prophylaxis Regimen: Total Risk Factor Score Risk Level Prophylaxis Regimen 0-1 Low Early ambulation 2 Moderate Order ONE of the following: *Sequential Compression Device (SCD) *Heparin 5000 units SQ BID 3-4 Higher Order ONE of the following medications: *Heparin 5000 units SQ TID *Enoxaparin/Lovenox 40 mg SQ daily (WT < 150 kg, CrCl > 30 mL/min) *Enoxaparin/Lovenox 30 mg SQ daily (WT < 150 kg, CrCl > 10-29 mL/min) *Enoxaparin/Lovenox 30 mg SQ BID (WT < 150 kg, CrCl > 30 mL/min) AND/OR *Sequential Compression Device (SCD) 5 or more Highest Order ONE of the following medications: *Heparin 5000 units SQ TID (Preferred with Epidurals) *Enoxaparin/Lovenox 40 mg SQ daily (WT < 150 kg, CrCl > 30 mL/min) *Enoxaparin/Lovenox 30 mg SQ daily (WT < 150 kg, CrCl > 10-29 mL/min) *Enoxaparin/Lovenox 30 mg SQ BID (WT < 150 kg, CrCl > 30 mL/min) AND *Sequential Compression Device (SCD) Assessment and Plan - Assessment (1) Chest pain, atypical Code(s): R07.89 - Other chest pain Status: Acute Plan: Admitted to chest pain center. ACS ruled out with 3 sets of EKGs and cardiac enzymes. Seen and evaluated by Dr. Conrado Harris. No further cardiac testing, recent miocardial perfusion study 10/2017 with decreased EF 29%. Discomfort likely due to mild congestive heart failure. Experiencing PND and orthopnea, requiring 2 large pillows to rest nightly. History of renal insufficiency and obesity which complicate issues. Encouraged follow up with a figure skater, apparently planing on switching [facility]. Lasix 20mg IVP x1 dose now. Plans to discharge home later this morning with follow up with her primary care provider. Verbalized understanding and agreeable to plan of care. (2) Congestive heart failure Code(s): I50.9 - Heart failure, unspecified Status: Acute Plan: Lasix 20mg IVP x1 dose now. No rales or JVD. Follow up with PCP and figure skater. Encouraged daily weights and keeping scheduled appointments as instructed. (3) Coronary artery disease Code(s): I25.10 - Atherosclerotic heart disease of [place] coronary artery without angina pectoris Status: Chronic Plan: Continue aspirin, beta siena, and statin. H&P: Quality - VTE Deep Vein Thrombosis/Pulmonary Embolism Present on Admission: No (3) Coronary artery disease Qualifiers: Coronary Disease-Associated Artery/Lesion type: [place] artery Associated angina: angina presence unspecified
--- NOTE | 2018-04-01 08:27 | ECG ---
Date Performed: 03/31/2018 Time Performed: 20:29:11 PTAGE: 67 years EKG: Sinus rhythm WITH SINUS ARRHYTHMIA MODERATE VOLTAGE CRITERIA FOR LVH, CONSIDER NORMAL VARIANT BORDERLINE ECG PREVIOUS TRACING : 03/31/2018 17.03 DOCTOR: Mina Teague Interpretating Date/Time 04/01/2018 08:25:20
--- NOTE | 2018-04-01 08:32 | ECG ---
Date Performed: 03/31/2018 Time Performed: 17:03:58 PTAGE: 67 years EKG: Sinus rhythm POSSIBLE LEFT ATRIAL ENLARGEMENT POSSIBLE LEFT VENTRICULAR HYPERTROPHY ABNORMAL ECG INTERPRETATION B ASED ON A DEFAULT AGE OF 40 YEARS PREVIOUS TRACING : 10/21/2017 06.29 DOCTOR: Mina Teague Interpretating Date/Time 04/01/2018 08:27:48
--- NOTE | 2018-04-01 08:47 | ECG ---
Date Performed: 04/01/2018 Time Performed: 00:49:57 PTAGE: 67 years EKG: Sinus rhythm ARM LEADS REVERSED ATYPICAL ECG PREVIOUS TRACING : 03/31/2018 20.29 DOCTOR: Mina Teague Interpretating Date/Time 04/01/2018 08:38:51
--- NOTE | 2018-04-01 09:00 | P.PNCA ---
Subjective Interval history: The patient was presented by the nurse practitioner and thoroughly discussed. I have personally seen the patient on previous occasions and am familiar with her history and issues. Previous and present documentation was reviewed her laboratory data radiographs and EKGs were reviewed. She was then seen in concert in the history was reviewed and physical examination was carried out. I am in agreement with documentation as entered and after discussion we will proceed with standard chest pain center protocol. Physical Exam Vital signs: Vital Signs 03/31/18 16:52 03/31/18 17:02 03/31/18 17:43 Temperature 97.5 F L Pulse Rate 101 H 91 H Respiratory Rate 18 18 Blood Pressure 150/73 H 119/60 Pulse Oximetry 95 96 96 03/31/18 18:00 04/01/18 00:00 04/01/18 00:25 Temperature Pulse Rate 80 73 66 Respiratory Rate 16 Blood Pressure 128/79 Pulse Oximetry 95 04/01/18 00:33 04/01/18 03:40 04/01/18 04:00 Temperature 98.1 F 98.2 F Pulse Rate 76 74 74 Respiratory Rate 18 18 Blood Pressure 128/80 105/70 Pulse Oximetry 96 96 04/01/18 07:52 Temperature 97.5 F L Pulse Rate 80 Respiratory Rate 18 Blood Pressure 113/71 Pulse Oximetry 95 Intake & Output 03/31/18 04/01/18 04/01/18 18:59 06:59 18:59 Intake Total 480 / 480 Balance 480 / 480 Weight 94 kg 93.9 kg Intake: Oral 480 / 480 Other: # Voids 1 # Bowel Movements 0 Weight On Admission 93.9 kg Narrative: I am in agreement with the objective findings as documented the following were specifically reviewed Neck careful evaluation for JVD was carried there was no significant JVD no masses nodes or bruits Chest reveals somewhat diminished breath sounds but not as much as would be expected with her history she had some mild rales at the left base on the first inspiration but this cleared rapidly and there were no wheezes or rhonchi Cardiovascular the PMI is displaced somewhat to the left there is a regular rhythm with a 2/6 systolic murmur radiating towards the left axilla but heard over the entire precordium is a 1/6 murmur. There are no gallops or rubs The abdomen is soft nontender with no guarding or rebound liver margin is not palpable Extremities reveal diffuse areas of purpura the left lower extremity from a fall on the steps the remaining she attributes to her puppy. There is no significant edema. Assessment and Plan - Plan This patient probably has significant underlying pulmonary disease possibly as a result of her pulmonary embolus since she has not smoked in years. She also has cardiac damage with the prior anterior wall NV which was intervened including a stent by Dr. riggins previously but left her with a 29% ejection fraction. Previous nuclear scanning showed a possible small reversible septal defect but was not of consequence to require re-consideration of intervention. Currently her problems seem to be a combination of pulmonary with superimposed low ejection fraction and chronic renal failure. We will evaluate and rule her out currently we will also try to diurese her a bit but probably have little to offer her as an inpatient. When she needs is good consistent outpatient care with a primary care physician but because of her economic and social status it is unlikely that this will happen although we will strongly encourage. Discussed Condition With: Reviewed with nurse practitioner and with patient Discharge Planning: Discharge to home if all rules out with strong recommendations for follow-up with primary care physician, educational guidance counselor and rocket assembly operator - Attending Attestation I attest that this patient's presentation warrants the evaluation and treatment given during this admission
== END 2018-04-01 19:30 | disposition home or self-care (01) ==
LOC: NEDA 16:45 → NEPGCP 16:45 → NEPC 16:45 → NEPGCP 04-01 00:23
PROVIDERS: ADMIT Internal Medicine Interventional Cardiology; ATTEND Internal Medicine Interventional Cardiology
DX: Z79.899 Other long term (current) drug therapy; I25.10 Atherosclerotic heart disease of native coronary artery without angina pectoris; Z86.711 Personal history of pulmonary embolism; M19.90 Unspecified osteoarthritis, unspecified site; R07.89 Other chest pain; I50.9 Heart failure, unspecified; R01.1 Cardiac murmur, unspecified; N18.9 Chronic kidney disease, unspecified; Z86.718 Personal history of other venous thrombosis and embolism; I13.0 Hypertensive heart and chronic kidney disease with heart failure and stage 1 through stage 4 chronic kidney disease, or unspecified chronic kidney disease; Z87.891 Personal history of nicotine dependence

== ENCOUNTER 2018-06-16 22:21 | Inpatient (IN) ==
--- NOTE | 2018-06-16 22:56 | ED ---
HPI General Chief Complaint: Chest Pain Stated Complaint: chest pain Time Seen by Provider: 06/16/18 22:44 Source: patient Mode of arrival: ambulatory Limitations: no limitations History of Present Illness HPI narrative: 67-year-old female with multiple complaints. Left-sided chest pain radiating substernally that started yesterday and is progressively worsening. Bilateral lower extremity pain which as per the patient is incapacitating and she is unable to walk and has been crawling that started yesterday as well. Complaining of nausea and vomiting and right-sided facial numbness all starting yesterday. Patient has been in the emergency room multiple times with chest pain, abdominal pain etc. She has history of LA, ejection fraction of 25% and history of PE all in the past as per her medical record. Her last admission into chest pain center was in March of this year where she was evaluated by cardiology. Patient says that her friend gave her 6 nitro pills over the course of the day for her chest pain and eventually drove her to the emergency room. Patient has been sobbing as she is telling me the history. Patient has history of chronic pain and is on oxycodone 10 mg every 6 hourly. She goes to [facility] to get the medications filled. No significant aggravating or relieving factors identified. MD complaint: Reports chest pain STEMI Alert: No Onset (ago): day(s) Duration: constant Onset: during rest Pain location: Reports left chest Severity: severe Quality: Reports sharp Relieving factors: nothing Exacerbating factors: nothing Related Data Home Medications Medication Instructions Recorded Confirmed nitroglycerin 0.4 mg SUBLINGUAL Q5-15M PRN 03/31/18 06/16/18 oxycodone-acetaminophen [Percocet] 1 tab PO Q6H PRN 03/31/18 06/16/18 aspirin 81 mg PO DAILY 05/16/18 06/16/18 atorvastatin 20 mg PO DAILY 05/16/18 06/16/18 carvedilol 3.125 mg PO BID 05/16/18 06/16/18 furosemide 20 mg PO DAILY 05/16/18 06/16/18 Allergies Allergy/AdvReac Type Severity Reaction Status Date / Time diphenhydramine AdvReac Severe Migraine Verified 06/16/18 22:26 lorazepam AdvReac Severe Psychosis Verified 06/16/18 22:26 Review of Systems ROS: all other systems reviewed are negative Cardiovascular Reports chest pain Gastrointestinal Reports nausea and Reports vomiting Musculoskeletal Reports myalgias Neurologic Reports numbness [facility] Medical History Medical History Arthritis (Acute) Breast cancer (Acute) CHF (congestive heart failure) (Acute) Heart attack (Acute) High cholesterol (Acute) Pulmonary embolism (Acute) Right cataract (Acute) Shingles (Acute) UTI (urinary tract infection) (Acute) Surgical History Surgical History Stented coronary artery (Acute) Family History Family History Other Family history non-contributory Social History Social History Substance History: No History of Abuse Second Hand Smoke Exposure: No Smoking Status: Never smoker Tobacco Type: Cigarettes How Often Do You Have a Drink Containing Alcohol: Never Recent Travel in [facility] within the Last 8 Weeks: No Recent Out of Country Travel within the Last 8 Weeks: No Immunization History Tetanus Immunization: <5 Years Exam Narrative Exam Narrative: GENERAL: Awake, alert, anxious, moderate distress, tearful SKIN: Focused skin assessment warm/dry. HEAD: Atraumatic. Normocephalic. EYES: Pupils equal and round. No scleral icterus. No injection or drainage. ENT: No nasal bleeding or discharge. Mucous membranes pink and moist. NECK: Trachea midline. No JVD. CARDIOVASCULAR: Regular rate and rhythm. No murmur appreciated. RESPIRATORY: No accessory muscle use. Clear to auscultation. Breath sounds equal bilaterally. GASTROINTESTINAL: Abdomen soft, non-tender, nondistended. Hepatic and splenic margins not palpable. MUSCULOSKELETAL: No obvious deformities. No clubbing. No cyanosis. No edema. NEUROLOGICAL: Awake and alert. No obvious cranial nerve deficits. Motor grossly within normal limits. Normal speech. PSYCHIATRIC: Appropriate mood and affect; insight and judgment normal. Course Initial Documented Vital Signs Temperature 98.2 F 06/16/18 22:24 Pulse Rate 115 H 06/16/18 22:24 Respiratory Rate 22 06/16/18 22:24 Blood Pressure 133/83 06/16/18 22:24 Pulse Oximetry 98 06/16/18 22:24 Last Documented Vital Signs Temperature 99.4 F 06/19/18 08:00 Pulse Rate 88 06/19/18 08:00 Respiratory Rate 18 06/19/18 08:00 Blood Pressure 126/71 06/19/18 08:00 Pulse Oximetry 96 06/19/18 08:00 Medical Decision Making MDM Narrative Medical decision making narrative: 11:55 PM blood test results are back and BUN and creatinine is slightly elevated. Patient was given 500 cc of IV fluid bolus. D-dimer is elevated and a CT pulmonary angiogram is ordered. CT head is pending. Awaiting for the CT to be done and resulted. Patient is given IV Zofran. 12:[address] head is negative. Patient's GFR is quite low and IV contrast was not recommended. I started her on a heparin drip and admitted. I discussed with the hospitalist and he will order a VQ scan for the morning. Medical Screen Exam Complete: Yes Emergency Medical Condition: Yes Lab Data Result diagrams: 06/18/18 04:45 06/18/18 04:45 Lab Results 06/16/18 06/16/18 06/16/18 Range/Units 22:50 22:50 22:50 WBC 10.6 (4.0-11.0) th/mm3 RBC 4.80 (4.00-5.30) mil/mm3 Hgb 14.4 (11.6-15.3) gm/dL Hct 43.7 (35.0-46.0) % MCV 91.1 (80.0-100.0) fL MCH 30.0 (27.0-34.0) pg MCHC 33.0 (32.0-36.0) % RDW 14.9 (11.6-17.2) % Plt Count 300 (150-450) th/mm3 MPV 8.7 (7.0-11.0) fL Neut % (Auto) 71.4 H (16.0-70.0) % Lymph % (Auto) 16.9 (9.0-44.0) % [place] % (Auto) 10.2 H (0.0-8.0) % Eos % (Auto) 1.0 (0.0-4.0) % Baso % (Auto) 0.5 (0.0-2.0) % Neut # (Auto) 7.6 (1.8-7.7) th/mm3 Lymph # (Auto) 1.8 (1.0-4.8) th/mm3 [place] # (Auto) 1.1 H (0.0-0.9) th/mm3 Eos # (Auto) 0.1 (0.0-0.4) th/mm3 Baso # (Auto) 0.1 (0.0-0.2) th/mm3 WBC Differential . Differential Comment Auto diff final ESR (0-30) mm/hr PT 10.9 (9.8-11.6) sec INR 1.1 Ratio APTT (24.3-30.1) sec D-Dimer Quant (PE/DVT) 2.06 H (0.00-0.50) mg/L FEU Sodium 139 (136-145) meq/L Potassium 4.1 (3.5-5.1) meq/L Chloride 107 (98-107) meq/L Carbon Dioxide 23.5 (21.0-32.0) meq/L Anion Gap 9 (5-15) meq/L BUN 25 H (7-18) mg/dL Creatinine 1.78 H (0.50-1.00) mg/dL Estimated GFR 29 L (>89) mL/min Random Glucose 108 H (74-106) mg/dL Calcium 9.1 (8.5-10.1) mg/dL Total Bilirubin 0.5 (0.2-1.0) mg/dL AST 19 (15-37) U/L ALT 34 (10-53) U/L Alkaline Phosphatase 59 (45-117) U/L Troponin I Less than 0.02 L (0.02-0.05) ng/mL C-Reactive Protein (0.00-0.30) mg/dL Total Protein 7.3 (6.4-8.2) g/dL Albumin 3.8 (3.4-5.0) g/dL 06/17/18 06/17/18 06/17/18 Range/Units 01:00 03:33 03:33 WBC 7.0 (4.0-11.0) th/mm3 RBC 4.25 (4.00-5.30) mil/mm3 Hgb 12.9 (11.6-15.3) gm/dL Hct 39.0 (35.0-46.0) % MCV 91.7 (80.0-100.0) fL MCH 30.2 (27.0-34.0) pg MCHC 33.0 (32.0-36.0) % RDW 15.4 (11.6-17.2) % Plt Count 250 (150-450) th/mm3 MPV 8.6 (7.0-11.0) fL Neut % (Auto) (16.0-70.0) % Lymph % (Auto) (9.0-44.0) % [place] % (Auto) (0.0-8.0) % Eos % (Auto) (0.0-4.0) % Baso % (Auto) (0.0-2.0) % Neut # (Auto) (1.8-7.7) th/mm3 Lymph # (Auto) (1.0-4.8) th/mm3 [place] # (Auto) (0.0-0.9) th/mm3 Eos # (Auto) (0.0-0.4) th/mm3 Baso # (Auto) (0.0-0.2) th/mm3 WBC Differential Differential Comment ESR (0-30) mm/hr PT 10.9 (9.8-11.6) sec INR 1.1 Ratio APTT 25.6 (24.3-30.1) sec D-Dimer Quant (PE/DVT) (0.00-0.50) mg/L FEU Sodium (136-145) meq/L Potassium (3.5-5.1) meq/L Chloride (98-107) meq/L Carbon Dioxide (21.0-32.0) meq/L Anion Gap (5-15) meq/L BUN (7-18) mg/dL Creatinine (0.50-1.00) mg/dL Estimated GFR (>89) mL/min Random Glucose (74-106) mg/dL Calcium (8.5-10.1) mg/dL Total Bilirubin (0.2-1.0) mg/dL AST (15-37) U/L ALT (10-53) U/L Alkaline Phosphatase (45-117) U/L Troponin I Less than 0.02 L (0.02-0.05) ng/mL C-Reactive Protein (0.00-0.30) mg/dL Total Protein (6.4-8.2) g/dL Albumin (3.4-5.0) g/dL 06/17/18 06/17/18 06/17/18 Range/Units 07:13 10:30 10:30 WBC (4.0-11.0) th/mm3 RBC (4.00-5.30) mil/mm3 Hgb (11.6-15.3) gm/dL Hct (35.0-46.0) % MCV (80.0-100.0) fL MCH (27.0-34.0) pg MCHC (32.0-36.0) % RDW (11.6-17.2) % Plt Count (150-450) th/mm3 MPV (7.0-11.0) fL Neut % (Auto) (16.0-70.0) % Lymph % (Auto) (9.0-44.0) % [place] % (Auto) (0.0-8.0) % Eos % (Auto) (0.0-4.0) % Baso % (Auto) (0.0-2.0) % Neut # (Auto) (1.8-7.7) th/mm3 Lymph # (Auto) (1.0-4.8) th/mm3 [place] # (Auto) (0.0-0.9) th/mm3 Eos # (Auto) (0.0-0.4) th/mm3 Baso # (Auto) (0.0-0.2) th/mm3 WBC Differential Differential Comment ESR (0-30) mm/hr PT (9.8-11.6) sec INR Ratio APTT 50.2 H D (24.3-30.1) sec D-Dimer Quant (PE/DVT) (0.00-0.50) mg/L FEU Sodium (136-145) meq/L Potassium (3.5-5.1) meq/L Chloride (98-107) meq/L Carbon Dioxide (21.0-32.0) meq/L Anion Gap (5-15) meq/L BUN (7-18) mg/dL Creatinine (0.50-1.00) mg/dL Estimated GFR (>89) mL/min Random Glucose (74-106) mg/dL Calcium (8.5-10.1) mg/dL Total Bilirubin (0.2-1.0) mg/dL AST (15-37) U/L ALT (10-53) U/L Alkaline Phosphatase (45-117) U/L Troponin I Less than 0.02 L (0.02-0.05) ng/mL C-Reactive Protein 2.48 H Cancelled (0.00-0.30) mg/dL Total Protein (6.4-8.2) g/dL Albumin (3.4-5.0) g/dL 06/17/18 06/17/18 06/17/18 Range/Units 12:52 17:24 20:37 WBC (4.0-11.0) th/mm3 RBC (4.00-5.30) mil/mm3 Hgb (11.6-15.3) gm/dL Hct (35.0-46.0) % MCV (80.0-100.0) fL MCH (27.0-34.0) pg MCHC (32.0-36.0) % RDW (11.6-17.2) % Plt Count (150-450) th/mm3 MPV (7.0-11.0) fL Neut % (Auto) (16.0-70.0) % Lymph % (Auto) (9.0-44.0) % [place] % (Auto) (0.0-8.0) % Eos % (Auto) (0.0-4.0) % Baso % (Auto) (0.0-2.0) % Neut # (Auto) (1.8-7.7) th/mm3 Lymph # (Auto) (1.0-4.8) th/mm3 [place] # (Auto) (0.0-0.9) th/mm3 Eos # (Auto) (0.0-0.4) th/mm3 Baso # (Auto) (0.0-0.2) th/mm3 WBC Differential Differential Comment ESR (0-30) mm/hr PT (9.8-11.6) sec INR Ratio APTT 60.8 H D 25.4 D (24.3-30.1) sec D-Dimer Quant (PE/DVT) (0.00-0.50) mg/L FEU Sodium (136-145) meq/L Potassium (3.5-5.1) meq/L Chloride (98-107) meq/L Carbon Dioxide (21.0-32.0) meq/L Anion Gap (5-15) meq/L BUN (7-18) mg/dL Creatinine (0.50-1.00) mg/dL Estimated GFR (>89) mL/min Random Glucose (74-106) mg/dL Calcium (8.5-10.1) mg/dL Total Bilirubin (0.2-1.0) mg/dL AST (15-37) U/L ALT (10-53) U/L Alkaline Phosphatase (45-117) U/L Troponin I (0.02-0.05) ng/mL C-Reactive Protein 2.50 H (0.00-0.30) mg/dL Total Protein (6.4-8.2) g/dL Albumin (3.4-5.0) g/dL 06/17/18 06/18/18 06/18/18 Range/Units 20:37 04:45 04:45 WBC 4.5 (4.0-11.0) th/mm3 RBC 4.32 (4.00-5.30) mil/mm3 Hgb 13.3 (11.6-15.3) gm/dL Hct 39.3 (35.0-46.0) % MCV 91.1 (80.0-100.0) fL MCH 30.9 (27.0-34.0) pg MCHC 33.9 (32.0-36.0) % RDW 15.3 (11.6-17.2) % Plt Count 225 (150-450) th/mm3 MPV 8.7 (7.0-11.0) fL Neut % (Auto) 57.8 (16.0-70.0) % Lymph % (Auto) 26.8 (9.0-44.0) % [place] % (Auto) 12.4 H (0.0-8.0) % Eos % (Auto) 2.4 (0.0-4.0) % Baso % (Auto) 0.6 (0.0-2.0) % Neut # (Auto) 2.6 (1.8-7.7) th/mm3 Lymph # (Auto) 1.2 (1.0-4.8) th/mm3 [place] # (Auto) 0.6 (0.0-0.9) th/mm3 Eos # (Auto) 0.1 (0.0-0.4) th/mm3 Baso # (Auto) 0.0 (0.0-0.2) th/mm3 WBC Differential . Differential Comment Auto diff final ESR 1 (0-30) mm/hr PT (9.8-11.6) sec INR Ratio APTT (24.3-30.1) sec D-Dimer Quant (PE/DVT) (0.00-0.50) mg/L FEU Sodium 139 (136-145) meq/L Potassium 4.0 (3.5-5.1) meq/L Chloride 105 (98-107) meq/L Carbon Dioxide 26.2 (21.0-32.0) meq/L Anion Gap 8 (5-15) meq/L BUN 23 H (7-18) mg/dL Creatinine 1.25 H (0.50-1.00) mg/dL Estimated GFR 43 L (>89) mL/min Random Glucose 103 (74-106) mg/dL Calcium 8.7 (8.5-10.1) mg/dL Total Bilirubin (0.2-1.0) mg/dL AST (15-37) U/L ALT (10-53) U/L Alkaline Phosphatase (45-117) U/L Troponin I (0.02-0.05) ng/mL C-Reactive Protein (0.00-0.30) mg/dL Total Protein (6.4-8.2) g/dL Albumin (3.4-5.0) g/dL Imaging Data Radiologist's impression: Chest X-Ray 06/16/18 22:47 CONCLUSION: The lungs are clear. Abdomen/Pelvis CT 06/17/18 00:00 CONCLUSION: 1. Unremarkable study. No evidence of bowel obstruction or bowel wall thickening. Solid organs are unremarkable on this unenhanced study Head CT 06/17/18 00:00 CONCLUSION: 1. No acute findings in the brain. 2. Left caudate the lacunar infarcts unchanged from 2015. . Lumbar Spine CT 06/17/18 00:00 CONCLUSION: No acute bony findings. Degenerative changes with canal stenosis which appears to be most significant at L3-4. This does not appear significantly changed from prior exam Lumbar Spine MRI 06/17/18 00:00 CONCLUSION: 1. There does appear to be degenerative disc disease at the L3-4 level with a broad-based diffuse annular bulge flattening the thecal sac. There is also posterior element hypertrophy causing a mild to moderate canal stenosis, similar to 2015 exam. On the sagittal images there is some clumping of the nerve roots similar to 2015. 2. On the axial images there is a small cyst within the thecal sac, anterolaterally on the left, at the L3-4 level but it shows no enhancement. 3. Degenerative facet disease mid lumbar spine showing mild enhancement. No evidence of metastatic disease Pulmonary Perfusion Imaging 06/17/18 00:00 CONCLUSION: No ventilation/perfusion mismatch is identified. Examination is low probability for PE. Venous Doppler Study 06/17/18 00:00 CONCLUSION: 1. The study is negative for bilateral lower extremity deep venous thrombosis. ECG Data Attestation: I personally reviewed and interpreted this ECG as follows: Interpretation: Twelve-lead EKG was reviewed by me. Normal sinus rhythm, left axis deviation, LVH H, questionable old anterior LA, unchanged from 04/2018. Heart rate of 108 Discharge Plan Discharge Disposition Patient Disposition: 30 Still Patient Discharge Condition Condition: Stable Discharge Order Discharge Orders: Discharge Order (Routine); Ordered 06/19/18 Ordered By: Maite Flores Discharge Details Anticipated Discharge Date: 06/19/18 Physicians Team ED Provider: Patrick Post Primary Care Provider: Kaz Burroughs Attending Provider: Maite Flores Other Providers: Samy Patrick ; Ramo Garber Status ED Status: Left Department Discharge Information Discharge Date/Time: 06/17/18 02:25
[2018-06-16 23:05] LABS: Baso # (Auto) 0.1 th/mm3 (0.0-0.2); Baso % (Auto) 0.5 % (0.0-2.0); Eos # (Auto) 0.1 th/mm3 (0.0-0.4); Hematocrit 43.7 % (35.0-46.0); Hemoglobin 14.4 gm/dL (11.6-15.3); Lymph # (Auto) 1.8 th/mm3 (1.0-4.8); Lymph % (Auto) 16.9 % (9.0-44.0); Mean Corpuscular Volume 91.1 fL (80.0-100.0); Mean Platelet Volume 8.7 fL (7.0-11.0); Mono # (Auto) 1.1 th/mm3 (0.0-0.9); Mono % (Auto) 10.2 % (0.0-8.0); Neut # (Auto) 7.6 th/mm3 (1.8-7.7); Neut % (Auto) 71.4 % (16.0-70.0); Platelet Count 300 th/mm3 (150-450); Red Cell Distribution Width 14.9 % (11.6-17.2); White Blood Count 10.6 th/mm3 (4.0-11.0)
[2018-06-16 23:21] LABS: D-Dimer 2.06 mg/L FEU (0.00-0.50); INR 1.1 Ratio; Prothrombin Time 10.9 sec (9.8-11.6)
--- NOTE | 2018-06-16 23:24 | XR ---
EXAM DATE: 06/16/2018 11:18 PM EDT AGE/SEX: 67 years / Female INDICATIONS: Chest pain today. Bilateral lower extremity pain. CLINICAL DATA: This is the patient's initial encounter. Patient reports that signs and symptoms have been present for 1 day and indicates a pain score of 10/10. MEDICAL/SURGICAL HISTORY: . Carcinoma, breast. Congestive heart failure. CAD. DDD. . Coronar y artery stent COMPARISON: [facility], CHEST 1V SINGLE AP, 05/10/2018. . FINDINGS: A single AP view of the chest demonstrates the lungs to be symmetrically aerated without evidence of mass, infiltrate or effusion. The cardiomediastinal contours are unremarkable. Osseous structures a re intact. CONCLUSION: The lungs are clear. Electronically signed by: Indra Stafford MD 06/16/2018 11:23 PM EDT
[2018-06-16 23:25] LABS: Alanine Aminotransferase 34 U/L (10-53); Albumin 3.8 g/dL (3.4-5.0); Anion Gap 9 meq/L (5-15); Aspartate Aminotransferase 19 U/L (15-37); Blood Urea Nitrogen 25 mg/dL (7-18); Calcium 9.1 mg/dL (8.5-10.1); Carbon Dioxide 23.5 meq/L (21.0-32.0); Chloride 107 meq/L (98-107); Glomerular Filtration Rate 29 mL/min (>89); Glucose,Random 108 mg/dL (74-106); Potassium 4.1 meq/L (3.5-5.1); Sodium 139 meq/L (136-145)
[2018-06-16 23:29] LABS: Alkaline Phosphatase 59 U/L (45-117); Total Protein 7.3 g/dL (6.4-8.2)
[2018-06-16] MEDS ORDERED: Sodium Chlor 0.9% Inj 500 ML IV.SIG SCH (23:45)
--- NOTE | 2018-06-17 00:27 | CT ---
EXAM DATE: 06/17/2018 12:07 AM EDT AGE/SEX: 67 years / Female INDICATIONS: Right facial numbness and hurts to walk. CLINICAL DATA: This is the patient's initial encounter. Patient reports that signs and symptoms have been present for 1 day and indicates a pain score of 5/10. MEDICAL/SURGICAL HISTORY: Cardiovascular disease. Carcinoma, breast. Pulmonary emboli Coronary ar justo stent. RADIATION DOSE: 66.34 CTDI (mGy) COMPARISON: [facility], CT BRAIN W/O CONTRAST, 11/07/2014. . TECHNIQUE: CT of the head without contrast. Using automated exposure control and adjustment of the mA and/or kV according to patient size, radiation dose was kept as low as reasonably achievable to ob tain optimal diagnostic quality images. DICOM format image data is available electronically for revi ew and comparison. FINDINGS: Cerebrum: The ventricles are normal for age. 2 lacunar infarcts in the head of the left caudate nuc leus are unchanged from 2014. No evidence of midline shift, mass lesion, hemorrhage or acute infarcti on. No extraaxial fluid collections are seen. Posterior Fossa: The cerebellum and brainstem are intact. The 4th ventricle is midline. The cerebe llopontine angle is unremarkable. Extracranial: The visualized portion of the orbits is intact. Skull: The calvaria is intact. No evidence of skull fracture. CONCLUSION: 1. No acute findings in the brain. 2. Left caudate the lacunar infarcts unchanged from 2014. . Electronically signed by: Indra Stafford MD 06/17/2018 12:26 AM EDT
[2018-06-17] MEDS ORDERED: Bisacodyl 10 MG Supp RECTAL PRN (01:17)
[2018-06-17 01:31] LABS: Activated Partial Thrombo Time 25.6 sec (24.3-30.1); INR 1.1 Ratio; Prothrombin Time 10.9 sec (9.8-11.6)
[2018-06-17] MEDS: Heparin Drip 25,000 UNIT/250 ML BAG IV.CONT PRN ×2 (01:44→12:56)
[2018-06-17] MEDS ORDERED: Naloxone Inj 0.4 MG/ML Vial IV.PUSH PRN (02:50)
[2018-06-17] MEDS ORDERED: Morphine Inj 4 MG/ML Vial IV.PUSH PRN (02:50)
[2018-06-17] MEDS ORDERED: Promethazine 25 MG Supp RECTAL PRN (02:52)
--- NOTE | 2018-06-17 03:07 | P.HPIM ---
History of Present Illness Primary Care Physician: Kaz Burroughs DO History of Present Illness: 67-year-old female with a history of CHF, pulmonary embolism, chronic pain who presents with a 2-day history of progressively worsening pleuritic left-sided chest pain, as well as bilateral calf pain. Left-sided chest pain became acutely worse around 2 PM on 06/16. She also reports a 2-day history of nausea without vomiting. Denies any fevers, chills, dysuria, diarrhea, constipation. Review of Systems All other systems reviewed negative except as stated in HPI PMFSH - History History Provided By: Patient - Medical History Medical History: Medical History (Last Reviewed 06/16/18 @ 23:54 by Patrick Post MD) Arthritis Breast cancer CHF (congestive heart failure) Heart attack High cholesterol Pulmonary embolism Right cataract Shingles UTI (urinary tract infection) - Surgical History Surgical History: Surgical History (Last Reviewed 06/16/18 @ 23:54 by Patrick Post MD) Stented coronary artery - Family History Family History: Family History (Last Updated 06/17/18 @ 03:00 by Torey Aguirre MD) Other Family history non-contributory - Tobacco History Second Hand Smoke Exposure: No Smoking Status: Never smoker Tobacco Type: Cigarettes - Alcohol History How Often Do You Have a Drink Containing Alcohol: Never - Substance Use History Substance History: No History of Abuse - Travel History Recent Travel in the [place] Within the Last 8 Weeks: No Recent Travel Out of the Country Within the Last 8 Weeks: No - Immunization History Tetanus Immunization: <5 Years Medications and Allergies Active Medications: Active Medications Al Hydroxide/Mg Hydroxide (Milk Of Leland [place]more) 30 ml PO Q12H PRN PRN Reason: Mild Constipation Aspirin (Aspirin Chew) 81 mg PO DAILY HUSEYIN Atorvastatin Calcium (Lipitor) 20 mg PO DAILY HUSEYIN Bisacodyl (Dulcolax Supp) 10 mg RECTAL DAILY PRN PRN Reason: SEVERE CONSITIPATION Carvedilol (Coreg) 3.125 mg PO BID HUSEYIN Furosemide (Lasix) 20 mg PO DAILY HUSEYIN Sodium Chloride (Ns Inj) 500 mls @ 0 mls/hr IV.SIG BOLUS HUSEYIN Last Infusion: 06/17/18 00:57 Dose: Infused Heparin Sodium/Dextrose (Heparin/D5w 25,000 U/250 Ml) 25,000 unit in 250 mls @ 0 mls/hr IV.CONT TITRATE PRN; Protocol PRN Reason: Per Protocol Last Admin: 06/17/18 01:44 Dose: 18 units/hr, 0.18 mls/hr Sodium Chloride (Ns Inj) 1,000 mls @ 75 mls/hr IV.CONT .[id number] HUSEYIN Lactulose (Lactulose Liq) 30 ml PO DAILY PRN PRN Reason: SEVERE CONSITIPATION Morphine Sulfate (Morphine Inj) 2 mg IV.PUSH Q3H PRN PRN Reason: PAIN 3-5; IF UABLE TO TAKE PO Morphine Sulfate (Morphine Inj) 4 mg IV.PUSH Q3H PRN PRN Reason: PAIN 6-10;IF UNABLE TO TAKE PO Naloxone HCl (Narcan Inj) 0.4 mg IV.PUSH UNSCH PRN PRN Reason: SEE LABEL COMMENTS Ondansetron HCl (Zofran Inj) 4 mg IV.PUSH Q6H PRN PRN Reason: NAUSEA OR VOMITING Promethazine HCl (Phenergan) 25 mg PO Q6H PRN PRN Reason: NAUSEA OR VOMITING Sennosides (Senokot) 17.2 mg PO Q12H PRN PRN Reason: Moderate Constipation Sodium Chloride (Ns Flush) 2 ml IV.FLUSH UNSCH PRN PRN Reason: FLUSH AFTER USING IV ACCESS Allergies Allergy/AdvReac Type Severity Reaction Status Date / Time diphenhydramine AdvReac Severe Migraine Verified 06/16/18 22:26 lorazepam AdvReac Severe Psychosis Verified 06/16/18 22:26 Home Medications Medication Instructions Recorded Confirmed Type nitroglycerin 0.4 mg SUBLINGUAL Q5-15M PRN 03/31/18 06/16/18 History oxycodone-acetaminophen [Percocet] 1 tab PO Q6H PRN 03/31/18 06/16/18 History aspirin 81 mg PO DAILY 05/16/18 06/16/18 History atorvastatin 20 mg PO DAILY 05/16/18 06/16/18 History carvedilol 3.125 mg PO BID 05/16/18 06/16/18 History furosemide 20 mg PO DAILY 05/16/18 06/16/18 History Exam Vital signs: Vital Signs 06/16/18 22:24 06/16/18 22:26 06/16/18 22:41 Temperature 98.2 F 98.8 F Pulse Rate 115 H 107 H Respiratory Rate 22 18 Blood Pressure 133/83 109/69 Pulse Oximetry 98 97 06/16/18 23:20 06/16/18 23:26 06/17/18 01:30 Temperature Pulse Rate 98 H 98 H 90 Respiratory Rate 20 20 20 Blood Pressure 104/62 102/59 L 108/65 Pulse Oximetry 98 96 96 Intake & Output 06/16/18 06/16/18 06/17/18 06:59 18:59 06:59 Intake Total 500 / 500 Balance 500 / 500 Weight 89.811 kg Intake: IV 500 / 500 NS Inj 500 ML @ Wide Open IV. 500 / 500 SIG BOLUS HUSEYIN Rx#:[id number] Narrative: GENERAL: Patient sitting up in bed. Appears uncomfortable. Alert and oriented x3. SKIN: Warm and dry. HEAD: Atraumatic. Normocephalic. EYES: Pupils equal and round. No scleral icterus. No injection or drainage. ENT: No nasal bleeding or discharge. Mucous membranes pink and moist. NECK: Trachea midline. No JVD. CARDIOVASCULAR: Regular rate and rhythm. RESPIRATORY: No accessory muscle use. Clear to auscultation. Breath sounds equal bilaterally. GASTROINTESTINAL: Abdomen soft, non-tender, nondistended. Hepatic and splenic margins not palpable. MUSCULOSKELETAL: Extremities without clubbing, cyanosis, or edema. No obvious deformities. NEUROLOGICAL: Awake and alert. No obvious cranial nerve deficits. Motor grossly within normal limits. Five out of 5 muscle strength in the arms and legs. Reflexes equal and symmetric normal speech. PSYCHIATRIC: Appropriate mood and affect; insight and judgment normal. Results - Labs CBC & Chem 7: 06/16/18 22:50 06/16/18 22:50 Labs: Short CBC 06/16/18 Range/Units 22:50 WBC 10.6 (4.0-11.0) th/mm3 Hgb 14.4 (11.6-15.3) gm/dL Hct 43.7 (35.0-46.0) % Plt Count 300 (150-450) th/mm3 BMP 06/16/18 22:50 Sodium 139 Potassium 4.1 Chloride 107 Carbon Dioxide 23.5 BUN 25 H Creatinine 1.78 H Calcium 9.1 Cardiac Enzymes 06/16/18 Range/Units 22:50 Troponin I Less than 0.02 L (0.02-0.05) ng/mL Liver Function 06/16/18 Range/Units 22:50 Total Bilirubin 0.5 (0.2-1.0) mg/dL AST 19 (15-37) U/L ALT 34 (10-53) U/L Alkaline Phosphatase 59 (45-117) U/L Albumin 3.8 (3.4-5.0) g/dL - Imaging Impressions Chest X-Ray 06/16/18 22:47 CONCLUSION: The lungs are clear. Head CT 06/17/18 00:00 CONCLUSION: 1. No acute findings in the brain. 2. Left caudate the lacunar infarcts unchanged from 2015. . Caprini VTE Risk Assessment Caprini VTE Risk Assessment: Moderate/High Risk (score >= 2) Caprini Risk Assessment Model: Point Value = 1 Point Value = 2 Point Value = 3 Point Value = 5 Age 41-60 Minor surgery BMI > 25 kg/m2 Swollen legs Varicose veins or History of unexplained or recurrent spontaneous Oral contraceptives or hormone replacement Sepsis (< 1 month) Serious lung disease, including pneumonia (< 1 month) Abnormal pulmonary function Acute myocardial infarction Congestive heart failure (< 1 month) History of inflammatory bowel disease Medical patient at bed rest Age 61-74 Arthroscopic surgery Major open surgery (> 45 min) Laparoscopic surgery (> 45 min) Malignancy Confined to bed (> 72 hours) Immobilizing plaster cast Central venous access Age >= 75 History of VTE Family history of VTE Factor V Leiden Prothrombin [id number] Lupus anticoagulant Anticardiolipin antibodies Elevated serum homocysteine Heparin-induced thrombocytopenia Other congenital or acquired thrombophilia Stroke (< 1 month) Elective arthroplasty Hip, pelvis, or leg fracture Acute spinal cord injury (< 1 month) Prophylaxis Regimen: Total Risk Factor Score Risk Level Prophylaxis Regimen 0-1 Low Early ambulation 2 Moderate Order ONE of the following: *Sequential Compression Device (SCD) *Heparin 5000 units SQ BID 3-4 Higher Order ONE of the following medications: *Heparin 5000 units SQ TID *Enoxaparin/Lovenox 40 mg SQ daily (WT < 150 kg, CrCl > 30 mL/min) *Enoxaparin/Lovenox 30 mg SQ daily (WT < 150 kg, CrCl > 10-29 mL/min) *Enoxaparin/Lovenox 30 mg SQ BID (WT < 150 kg, CrCl > 30 mL/min) AND/OR *Sequential Compression Device (SCD) 5 or more Highest Order ONE of the following medications: *Heparin 5000 units SQ TID (Preferred with Epidurals) *Enoxaparin/Lovenox 40 mg SQ daily (WT < 150 kg, CrCl > 30 mL/min) *Enoxaparin/Lovenox 30 mg SQ daily (WT < 150 kg, CrCl > 10-29 mL/min) *Enoxaparin/Lovenox 30 mg SQ BID (WT < 150 kg, CrCl > 30 mL/min) AND *Sequential Compression Device (SCD) Assessment and Plan - Plan //Acute onset pleuritic left-sided chest pain //Suspected pulmonary embolism Due to acute kidney injury, patient will receive VQ scan in the morning. -Narcotics for pain control Managed on heparin drip until results of further testing return. //Bilateral leg pain. -Patient denies dimitrios weakness, however ambulation is limited secondary to pain. Likely secondary to DVTs versus lumbar spinal stenosis. Order ultrasound to rule out DVT. We will order CT noncontrast to evaluate for lumbar spinal stenosis which was seen on previous imaging last month. //Acute kidney injury. Creatinine 1.7 from 1.1. Likely secondary to nausea and vomiting. Will give IV fluids and monitor. Hyperlipidemia. Chronic. Continue home medication CHF. Chronic. Continue home medications. Discussed Condition With: patient, nurse, ED physician. H&P: Quality - VTE Deep Vein Thrombosis/Pulmonary Embolism Present on Admission: Yes
[2018-06-17] MEDS ORDERED: Sod Chloride 0.9% Inj 1,000 ML IV.SIG SCH (03:15)
[2018-06-17] MEDS: Sod Chloride 0.9% Inj 1,000 ML IV.CONT SCH ×2 (03:17→15:12)
[2018-06-17 04:22] LABS: Hemoglobin 12.9 gm/dL (11.6-15.3); Mean Corpuscular Hemoglobin 30.2 pg (27.0-34.0); Mean Corpuscular Volume 91.7 fL (80.0-100.0); Mean Platelet Volume 8.6 fL (7.0-11.0); Platelet Count 250 th/mm3 (150-450); Red Blood Count 4.25 mil/mm3 (4.00-5.30); Red Cell Distribution Width 15.4 % (11.6-17.2)
[2018-06-17] MEDS: Morphine Sulfate Inj 2 MG/ML Vial IV.PUSH PRN ×3 (04:51→10:43)
[2018-06-17] MEDS: Furosemide 20 MG Tablet PO SCH (10:07)
--- NOTE | 2018-06-17 10:47 | NM ---
EXAM DATE: 06/17/2018 10:36 AM EDT AGE/SEX: 67 years / Female INDICATIONS: Left sided chest pain. CLINICAL DATA: This is the patient's initial encounter. Patient reports that signs and symptoms have been present for 1 day and indicates a pain score of 2/10. MEDICAL/SURGICAL HISTORY: Carcinoma, breast. Myocardial infarction. Congestive heart failure. Coronary artery stent. [place] [facility] [place]2016. . DOSE: 1.5 mCi Tc99m DTPA aerosol 8.1 mCi Tc99m MAA IV TECHNIQUE: Following five minutes of tidal breathing of DTPA aerosol, planar images of the lungs wer e performed in eight projections. The patient was then injected with MAA, and eight-view perfusion s can was performed. FINDINGS: There is a homogeneous pattern of aerosol delivery to the periphery of both lungs. No focal ventilat ory defects are seen. The perfusion lung scan demonstrates a homogenous pattern of uptake in both lungs. No segmental or s ubsegmental defects are seen. CONCLUSION: No ventilation/perfusion mismatch is identified. Examination is low probability for PE. Electronically signed by: Brandon Villafana MD 06/17/2018 10:45 AM EDT
--- NOTE | 2018-06-17 12:04 | CT ---
EXAM DATE: 06/17/2018 11:53 AM EDT AGE/SEX: 67 years / Female INDICATIONS: Lower back pain. CLINICAL DATA: This is the patient's initial encounter. Patient reports that signs and symptoms have been present for 2 days and indicates a pain score of 7/10. MEDICAL/SURGICAL HISTORY: Congestive heart failure. Myocardial infarction. Carcinoma, breast. Cor onary artery stent. RADIATION DOSE: 35.86 CTDI (mGy) [place] [facility] [place]. . TECHNIQUE: Contiguous axial images were acquired with a multirow detector CT scanner without contras t. Multiplanar reconstructions in the sagittal and coronal plane were also performed. Using automate d exposure control and adjustment of the mA and/or kV according to patient size, radiation dose was k ept as low as reasonably achievable to obtain optimal diagnostic quality images. DICOM format image data is available electronically for review and comparison. FINDINGS: Lumbar spine alignment is notable for minimal anterolisthesis of L3 relative to L4 and minimal retrol isthesis of L5 relative to S1. There is slight scoliotic curvature. There is no evidence of fracture or destructive change. There are degenerative changes present with disc space narrowing most notably at L3-4 and L5 5-S1. There is no significant bony canal or foraminal compromise identified. There is mild annular disc bulge throughout and broad superimposed dorsal protrusion and dorsal ligamentous hy pertrophy with facet arthropathy at L3-4 which appears to produce at least moderate canal stenosis. L ess severe changes at adjacent levels. Significant posterior facet arthropathy throughout the lower l umbar levels. No evidence of paraspinal mass or hematoma. CONCLUSION: No acute bony findings. Degenerative changes with canal stenosis which appears to be most significant at L3-4. This does not appear significantly changed from prior exam Electronically signed by: Brandon Stern MD 06/17/2018 12:03 PM EDT
--- NOTE | 2018-06-17 12:26 | P.PN ---
Subjective Interval history: In bed, complains of back pain, non radiating. Denies fever or chills. No n/v/d/c. Patient reports rectal bleeding today. says she doesn't have a h/o hemorrhoids and had a recent colonoscopy with GI in [place]. No pain Patient with weakness in her legs, spoke with neurosurgery, will check CRP, ESR and MRI lumbar spine with contrast Physical Exam Vital signs: Vital Signs 06/16/18 22:24 06/16/18 22:26 06/16/18 22:41 Temperature 98.2 F 98.8 F Pulse Rate 115 H 107 H Respiratory Rate 22 18 Blood Pressure 133/83 109/69 Pulse Oximetry 98 97 06/16/18 23:20 06/16/18 23:26 06/17/18 01:30 Temperature Pulse Rate 98 H 98 H 90 Respiratory Rate 20 20 20 Blood Pressure 104/62 102/59 L 108/65 Pulse Oximetry 98 96 96 06/17/18 02:53 06/17/18 04:24 06/17/18 04:51 Temperature 97.8 F 99.3 F Pulse Rate 95 H 94 H Respiratory Rate 17 20 Blood Pressure 92/57 L 103/66 111/85 Pulse Oximetry 96 06/17/18 05:29 06/17/18 07:43 06/17/18 08:00 Temperature 98.5 F Pulse Rate 87 Respiratory Rate 16 16 Blood Pressure 117/57 L Pulse Oximetry 96 96 06/17/18 09:00 06/17/18 11:58 Temperature 98.7 F Pulse Rate 73 84 Respiratory Rate 16 Blood Pressure 104/62 Pulse Oximetry 93 L Intake & Output 06/16/18 06/17/18 06/17/18 18:59 06:59 18:59 Intake Total 580 / 580 300 / 300 Output Total 300 / 300 Balance 280 / 280 300 / 300 Weight 89.811 kg Intake: IV 500 / 500 300 / 300 NS Inj 1,000 ML @ 100 mls/hr IV 300 / 300 .CONT .Q10H HUSEYIN Rx#:[id number] NS Inj 500 ML @ Wide Open IV. 500 / 500 SIG BOLUS HUSEYIN Rx#:[id number] Oral 80 / 80 Output: Urine 300 / 300 Narrative: GENERAL: Patient sitting up in bed. Appears uncomfortable due to back pain. Alert and oriented x3. CARDIOVASCULAR: Regular rate and rhythm. RESPIRATORY: No accessory muscle use. Clear to auscultation. Breath sounds equal bilaterally. GASTROINTESTINAL: Abdomen soft, non-tender, nondistended. Hepatic and splenic margins not palpable. MUSCULOSKELETAL: Extremities without clubbing, cyanosis, or edema. No obvious deformities. NEUROLOGICAL: Awake and alert. No obvious cranial nerve deficits. Motor grossly within normal limits. Five out of 5 muscle strength in the arms and legs. Reflexes equal and symmetric normal speech. PSYCHIATRIC: Appropriate mood and affect; insight and judgment normal. Results - Labs CBC & Chem 7: 06/17/18 03:33 06/16/18 22:50 Laboratory Results - last 24 hr 06/16/18 06/16/18 06/16/18 22:50 22:50 22:50 WBC 10.6 RBC 4.80 Hgb 14.4 Hct 43.7 MCV 91.1 MCH 30.0 MCHC 33.0 RDW 14.9 Plt Count 300 MPV 8.7 Neut % (Auto) 71.4 H Lymph % (Auto) 16.9 [place] % (Auto) 10.2 H Eos % (Auto) 1.0 Baso % (Auto) 0.5 Neut # (Auto) 7.6 Lymph # (Auto) 1.8 [place] # (Auto) 1.1 H Eos # (Auto) 0.1 Baso # (Auto) 0.1 WBC Differential . Differential Comment Auto diff final PT 10.9 INR 1.1 APTT D-Dimer Quant (PE/DVT) 2.06 H Sodium 139 Potassium 4.1 Chloride 107 Carbon Dioxide 23.5 Anion Gap 9 BUN 25 H Creatinine 1.78 H Estimated GFR 29 L Random Glucose 108 H Calcium 9.1 Total Bilirubin 0.5 AST 19 ALT 34 Alkaline Phosphatase 59 Troponin I Less than 0.02 L Total Protein 7.3 Albumin 3.8 06/17/18 06/17/18 06/17/18 01:00 03:33 03:33 WBC 7.0 RBC 4.25 Hgb 12.9 Hct 39.0 MCV 91.7 MCH 30.2 MCHC 33.0 RDW 15.4 Plt Count 250 MPV 8.6 Neut % (Auto) Lymph % (Auto) [place] % (Auto) Eos % (Auto) Baso % (Auto) Neut # (Auto) Lymph # (Auto) [place] # (Auto) Eos # (Auto) Baso # (Auto) WBC Differential Differential Comment PT 10.9 INR 1.1 APTT 25.6 D-Dimer Quant (PE/DVT) Sodium Potassium Chloride Carbon Dioxide Anion Gap BUN Creatinine Estimated GFR Random Glucose Calcium Total Bilirubin AST ALT Alkaline Phosphatase Troponin I Less than 0.02 L Total Protein Albumin 06/17/18 07:13 WBC RBC Hgb Hct MCV MCH MCHC RDW Plt Count MPV Neut % (Auto) Lymph % (Auto) [place] % (Auto) Eos % (Auto) Baso % (Auto) Neut # (Auto) Lymph # (Auto) [place] # (Auto) Eos # (Auto) Baso # (Auto) WBC Differential Differential Comment PT INR APTT 50.2 H D D-Dimer Quant (PE/DVT) Sodium Potassium Chloride Carbon Dioxide Anion Gap BUN Creatinine Estimated GFR Random Glucose Calcium Total Bilirubin AST ALT Alkaline Phosphatase Troponin I Total Protein Albumin - Imaging Impressions Chest X-Ray 06/16/18 22:47 CONCLUSION: The lungs are clear. Head CT 06/17/18 00:00 CONCLUSION: 1. No acute findings in the brain. 2. Left caudate the lacunar infarcts unchanged from 2015. . Lumbar Spine CT 06/17/18 00:00 CONCLUSION: No acute bony findings. Degenerative changes with canal stenosis which appears to be most significant at L3-4. This does not appear significantly changed from prior exam Pulmonary Perfusion Imaging 06/17/18 00:00 CONCLUSION: No ventilation/perfusion mismatch is identified. Examination is low probability for PE. Assessment and Plan - Plan Acute onset pleuritic left-sided chest pain Suspected pulmonary embolism. Elevated D Dimer. Due to acute kidney injury, patient had VQ scan, no PE. Narcotics for pain control change to normo PO as need and morphine IV for breakthrough pain DC heparin drip as no PE and also patient now with rectal bleeding Rectal bleeding DC heparin. Consult GI Bilateral leg pain. Back pain. Patient denies dimitrios weakness, however ambulation is limited secondary to pain. Poss lumbar spinal stenosis, r/o infectious process like abscess vs diskitis. Check MRI lumbar spine with contrast, check ESR and CRP Order ultrasound to rule out DVT. CT noncontrast to evaluate for lumbar spinal stenosis which was seen on previous imaging last month. Neurosurgery consulted, case discussed at length with Dr Patrick, appreciate recommendations Acute kidney injury. Creatinine 1.7 from 1.1. Likely secondary to nausea and vomiting. Continue gentle IV fluids and monitor . Hyperlipidemia. Chronic. Continue home medication CHF. Chronic. Continue home medications. Discussed Condition With: patient, nurse, Dr Patrick neurosurgery Admit inpatient
--- NOTE | 2018-06-17 13:58 | ECG ---
Date Performed: 06/17/2018 Time Performed: 07:39:51 PTAGE: 67 years EKG: Sinus rhythm POSSIBLE LEFT ATRIAL ENLARGEMENT POSSIBLE LEFT VENTRICULAR HYPERTROPHY ABNORMAL ECG PREVIOUS TRACING : 06/16/2018 22.42 Since the previous tracing, no significant change noted DOCTOR: Natalio Saeed Interpretating Date/Time 06/17/2018 13:58:14
[2018-06-17] MEDS ORDERED: Gadobutrol PF 10 MMOL/10 ML Vial (for RAD) IV.SIG ONE (14:10)
--- NOTE | 2018-06-17 14:22 | ECG ---
Date Performed: 06/16/2018 Time Performed: 22:42:56 PTAGE: 67 years EKG: SINUS TACHYCARDIA POSSIBLE LEFT ATRIAL ENLARGEMENT LOW QRS VOLTAGE IN PRECORDIAL LEADS LEFT VENTRICULAR HYPERTROPHY AND ST-T CHANGE POSSIBLE SEPTAL MYOCARDIAL INFARCTION ABNORMAL ECG PREVIOUS TRACING : 05/10/2018 13.03 DOCTOR: Natalio Saeed Interpretating Date/Time 06/17/2018 14:20:47
[2018-06-17 14:30] LABS: C-Reactive Protein 2.48 mg/dL (0.00-0.30)
--- NOTE | 2018-06-17 15:04 | P.PNNS ---
Subjective Interval history: Leg pain bilaterally so severe that when she stands up she cannot remain standing (x 2 days). Pain in bilateral calfs. Patient unsure if coming from back or legs. Physical Exam Vital signs: Vital Signs 06/16/18 22:24 06/16/18 22:26 06/16/18 22:41 Temperature 98.2 F 98.8 F Pulse Rate 115 H 107 H Respiratory Rate 22 18 Blood Pressure 133/83 109/69 Pulse Oximetry 98 97 06/16/18 23:20 06/16/18 23:26 06/17/18 01:30 Temperature Pulse Rate 98 H 98 H 90 Respiratory Rate 20 20 20 Blood Pressure 104/62 102/59 L 108/65 Pulse Oximetry 98 96 96 06/17/18 02:53 06/17/18 04:24 06/17/18 04:51 Temperature 97.8 F 99.3 F Pulse Rate 95 H 94 H Respiratory Rate 17 20 Blood Pressure 92/57 L 103/66 111/85 Pulse Oximetry 96 06/17/18 05:29 06/17/18 07:43 06/17/18 08:00 Temperature 98.5 F Pulse Rate 87 Respiratory Rate 16 16 Blood Pressure 117/57 L Pulse Oximetry 96 96 06/17/18 09:00 06/17/18 11:58 Temperature 98.7 F Pulse Rate 73 84 Respiratory Rate 16 Blood Pressure 104/62 Pulse Oximetry 93 L Intake & Output 06/16/18 06/17/18 06/17/18 18:59 06:59 18:59 Intake Total 580 / 580 550 / 550 Output Total 300 / 300 Balance 280 / 280 550 / 550 Weight 89.811 kg Intake: IV 500 / 500 550 / 550 Heparin/D5W 25,000 U/250 mL 25, 250 / 250 000 unit In 250 ml @ Per Protocol IV.CONT TITRATE PRN Rx #:[id number] NS Inj 1,000 ML @ 100 mls/hr IV 300 / 300 .CONT .Q10H HUSEYIN Rx#:[id number] NS Inj 500 ML @ Wide Open IV. 500 / 500 SIG BOLUS HUSEYIN Rx#:[id number] Oral 80 / 80 Output: Urine 300 / 300 Narrative: Motor:5/5 UE/LE including all muscle groups Intact sensation in legs Reflexes symmetric physiologic No bowel or bladder incontinence Assessment and Plan - Plan 67yoF with complaints of bilateral leg pain, possible localization to the back. MRI L-spine reviewed and benign - no obvious sign of infection or compression CT L-spine also reviewed. Defer remainder of workup to medicine-- bilateral DVT scan and look for other causes. It is not entirely clear whether this is coming from her back but the imaging is negative thus far, and exam not convincing for spinal stenosis.
--- NOTE | 2018-06-17 15:16 | MR ---
EXAM DATE: 06/17/2018 2:56 PM EDT AGE/SEX: 67 years / Female INDICATIONS: Pain. CLINICAL DATA: This is the patient's initial encounter. Patient reports that signs and symptoms have been present for 2 days and indicates a pain score of 4/10. MEDICAL/SURGICAL HISTORY: Carcinoma, breast. Congestive heart failure. . Lumpectomy COMPAR[place] [facility] [place] W & W/O CONTRAST, 11/28/2014. . TECHNIQUE: Multiplanar, multisequence MRI examination of the lumbar spine was performed without and with 8cc ml Gadavist (gadobutrol) contrast as a single exam dose. FINDINGS: The most caudal-appearing lumbar vertebra is numbered as L5. Vertebra: Homogeneous signal. There is mild intervertebral disc space narrowing at the L3-4 level wi th slight anterolisthesis of L3 on L4. I suspect vacuum phenomenon at L3-4. No marrow replacing proce ss is noted. Conus: Posterior to L3-4 there does appear to be some clumping of the nerve roots without any enhanc ement or any definite masses amongst the nerve roots. It is similar to November 2014. Post Contrast: Some mild enhancement along the posterior elements of both L3-4 and L4-5 suggesting f acet arthropathy T12-L1: The thecal sac has a normal diameter. No evidence of disc bulge or protrusion. The neural foramina are patent bilaterally. L1-L2: The thecal sac has a normal diameter. No evidence of disc bulge or protrusion. The neural foramina are patent bilaterally. L2-L3: The thecal sac has a normal diameter. No evidence of disc bulge or protrusion. The neural foramina are patent bilaterally. L3-L4: There is a broad-based diffuse annular bulge. There is hypertrophy of the facet joints and l igamentum flavum. The L3 nerve roots have exited without difficulty but the lateral recesses are mony rly narrowed. On the T2 axial images (series 6 images 5 and 6).There may be a small cyst within the t hecal sac. No abnormal areas of enhancement are seen L4-L5: The thecal sac has a normal diameter. No evidence of disc bulge or protrusion. The neural foramina are patent bilaterally. Mild facet hypertrophy L5-S1: The thecal sac has a normal diameter. No evidence of disc bulge or protrusion. The neural foramina are patent bilaterally. CONCLUSION: 1. There does appear to be degenerative disc disease at the L3-4 level with a broad-based diffuse an nular bulge flattening the thecal sac. There is also posterior element hypertrophy causing a mild to moderate canal stenosis, similar to 2015 exam. On the sagittal images there is some clumping of the n erve roots similar to 2015. 2. On the axial images there is a small cyst within the thecal sac, anterolaterally on the left, at the L3-4 level but it shows no enhancement. 3. Degenerative facet disease mid lumbar spine showing mild enhancement. No evidence of metastatic d isease Electronically signed by: Mina Keating MD 06/17/2018 3:15 PM EDT
--- NOTE | 2018-06-17 16:37 | US ---
EXAM DATE: 06/17/2018 4:28 PM EDT AGE/SEX: 67 years / Female INDICATIONS: Bilateral leg pain. CLINICAL DATA: This is the patient's initial encounter. Patient reports that signs and symptoms have been present for 1 day and indicates a pain score of 10/10. MEDICAL/SURGICAL HISTORY: . Carcinoma, breast. Myocardial infarction. Congestive heart failure. . Coronary artery stent. COMPARISON: [facility] – [place] LEG BILATERAL VENOUS DOPPLER, 06/14/2015. . TECHNIQUE: Venous ultrasound of both lower extremities was performed from the inguinal ligament to t he proximal calf. Real-time, color Doppler and spectral tracing, compression and augmentation techni ques were used. FINDINGS: Right Leg: Normal compression of the deep venous system from the inguinal region to the proximal luca f. No echogenic clot is seen. Normal response of the venous system to augmentation and respiration. Left Leg: Normal compression of the deep venous system from the inguinal region to the proximal calf . No echogenic clot is seen. Normal response of the venous system to augmentation and respiration. Other: None. CONCLUSION: 1. The study is negative for bilateral lower extremity deep venous thrombosis. Electronically signed by: Andre Pierre MD 06/17/2018 4:35 PM EDT
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
--- NOTE | 2018-06-17 18:07 | P.CONNS ---
History of Present Illness Primary Care Provider: Kaz Burroughs DO History of Present Illness: Please see progress note from same day for full details. [facility] - History History Provided By: Patient - Medical History Medical History: Medical History (Last Reviewed 06/16/18 @ 23:54 by Patrick Post MD) Arthritis Breast cancer CHF (congestive heart failure) Heart attack High cholesterol Pulmonary embolism Right cataract Shingles UTI (urinary tract infection) - Surgical History Surgical History: Surgical History (Last Reviewed 06/16/18 @ 23:54 by Patrick Post MD) Stented coronary artery - Family History Family History: Family History (Last Updated 06/17/18 @ 03:00 by Torey Aguirre MD) Other Family history non-contributory - Tobacco History Second Hand Smoke Exposure: No Smoking Status: Never smoker Tobacco Type: Cigarettes - Alcohol History How Often Do You Have a Drink Containing Alcohol: Never - Substance Use History Substance History: No History of Abuse - Travel History Recent Travel in the [place] Within the Last 8 Weeks: No Recent Travel Out of the Country Within the Last 8 Weeks: No - Immunization History Tetanus Immunization: <5 Years Medications and Allergies Active Medications: Active Medications Hydrocodone Bitart/Acetaminophen ([place] 10/325) 1 tab PO Q4H PRN PRN Reason: pain 2-6 Last Admin: 06/17/18 12:34 Dose: 1 tab Hydrocodone Bitart/Acetaminophen ([place] 5/325) 1 tab PO Q4H PRN PRN Reason: pain 7-10 Al Hydroxide/Mg Hydroxide (Milk Of Magnesia Liq) 30 ml PO Q12H PRN PRN Reason: Mild Constipation Aspirin (Aspirin Chew) 81 mg PO DAILY [facility] Last Admin: 06/17/18 10:06 Dose: 81 mg Atorvastatin Calcium (Lipitor) 20 mg PO DAILY [facility] Last Admin: 06/17/18 10:07 Dose: 20 mg Bisacodyl (Dulcolax Supp) 10 mg RECTAL DAILY PRN PRN Reason: SEVERE CONSITIPATION Carvedilol (Coreg) 3.125 mg PO BID [facility] Last Admin: 06/17/18 10:07 Dose: 3.125 mg Furosemide (Lasix) 20 mg PO DAILY [facility] Last Admin: 06/17/18 10:07 Dose: 20 mg Sodium Chloride (Ns Inj) 1,000 mls @ 100 mls/hr IV.CONT .Q10H HUSEYIN Last Admin: 06/17/18 15:12 Dose: Not Given Sodium Chloride (Ns Inj) 1,000 mls @ 0 mls/hr IV.SIG BOLUS HUSEYIN Lactulose (Lactulose Liq) 30 ml PO DAILY PRN PRN Reason: SEVERE CONSITIPATION Morphine Sulfate (Morphine Inj) 2 mg IV.PUSH Q3H PRN PRN Reason: breakthrough pain/ unable PO Last Admin: 06/17/18 10:43 Dose: 2 mg Naloxone HCl (Narcan Inj) 0.4 mg IV.PUSH UNSCH PRN PRN Reason: SEE LABEL COMMENTS Ondansetron HCl (Zofran Inj) 4 mg IV.PUSH Q6H PRN PRN Reason: NAUSEA OR VOMITING Last Admin: 06/17/18 10:44 Dose: 4 mg Ondansetron HCl (Zofran Odt) 4 mg PO Q6H PRN PRN Reason: NAUSEA OR VOMITING Last Admin: 06/17/18 14:40 Dose: 4 mg Promethazine HCl (Phenergan) 25 mg PO Q6H PRN PRN Reason: NAUSEA OR VOMITING Last Admin: 06/17/18 03:24 Dose: 25 mg Promethazine HCl (Phenergan Supp) 25 mg RECTAL Q6H PRN PRN Reason: NAUSEA OR VOMITING Sennosides (Senokot) 17.2 mg PO Q12H PRN PRN Reason: Moderate Constipation Sodium Chloride (Ns Flush) 2 ml IV.FLUSH UNSCH PRN PRN Reason: FLUSH AFTER USING IV ACCESS Allergies Allergy/AdvReac Type Severity Reaction Status Date / Time diphenhydramine AdvReac Severe Migraine Verified 06/16/18 22:26 lorazepam AdvReac Severe Psychosis Verified 06/16/18 22:26 Home Medications Medication Instructions Recorded Confirmed Type nitroglycerin 0.4 mg SUBLINGUAL Q5-15M PRN 03/31/18 06/16/18 History oxycodone-acetaminophen [Percocet] 1 tab PO Q6H PRN 03/31/18 06/16/18 History aspirin 81 mg PO DAILY 05/16/18 06/16/18 History atorvastatin 20 mg PO DAILY 05/16/18 06/16/18 History carvedilol 3.125 mg PO BID 05/16/18 06/16/18 History furosemide 20 mg PO DAILY 05/16/18 06/16/18 History Exam Vital signs: Vital Signs 06/16/18 22:24 06/16/18 22:26 06/16/18 22:41 Temperature 98.2 F 98.8 F Pulse Rate 115 H 107 H Respiratory Rate 22 18 Blood Pressure 133/83 109/69 Pulse Oximetry 98 97 06/16/18 23:20 06/16/18 23:26 06/17/18 01:30 Temperature Pulse Rate 98 H 98 H 90 Respiratory Rate 20 20 20 Blood Pressure 104/62 102/59 L 108/65 Pulse Oximetry 98 96 96 06/17/18 02:53 06/17/18 04:24 06/17/18 04:51 Temperature 97.8 F 99.3 F Pulse Rate 95 H 94 H Respiratory Rate 17 20 Blood Pressure 92/57 L 103/66 111/85 Pulse Oximetry 96 06/17/18 05:29 06/17/18 07:43 06/17/18 08:00 Temperature 98.5 F Pulse Rate 87 Respiratory Rate 16 16 Blood Pressure 117/57 L Pulse Oximetry 96 96 06/17/18 09:00 06/17/18 11:58 06/17/18 16:00 Temperature 98.7 F 98.7 F Pulse Rate 73 84 83 Respiratory Rate 16 14 Blood Pressure 104/62 96/56 L Pulse Oximetry 93 L 98 Intake & Output 06/16/18 06/17/18 06/17/18 18:59 06:59 18:59 Intake Total 580 / 580 600 / 600 Output Total 300 / 300 Balance 280 / 280 600 / 600 Weight 89.811 kg Intake: IV 500 / 500 600 / 600 Heparin/D5W 25,000 U/250 mL 25, 300 / 300 000 unit In 250 ml @ Per Protocol IV.CONT TITRATE PRN Rx #:[id number] NS Inj 1,000 ML @ 100 mls/hr IV 300 / 300 .CONT .Q10H HUSEYIN Rx#:[id number] NS Inj 500 ML @ Wide Open IV. 500 / 500 SIG BOLUS HUSEYIN Rx#:[id number] Oral 80 / 80 Output: Urine 300 / 300 Results - Laboratory Findings CBC and BMP: 06/17/18 03:33 06/16/18 22:50 Abnormal lab findings: Abnormal Labs 06/16/18 06/16/18 06/16/18 22:50 22:50 22:50 Neut % (Auto) 71.4 H [place] % (Auto) 10.2 H [place] # (Auto) 1.1 H APTT D-Dimer Quant (PE/DVT) 2.06 H BUN 25 H Creatinine 1.78 H Estimated GFR 29 L Random Glucose 108 H Troponin I Less than 0.02 L C-Reactive Protein 06/17/18 06/17/18 06/17/18 03:33 07:13 10:30 Neut % (Auto) [place] % (Auto) [place] # (Auto) APTT 50.2 H D D-Dimer Quant (PE/DVT) BUN Creatinine Estimated GFR Random Glucose Troponin I Less than 0.02 L Less than 0.02 L C-Reactive Protein 2.48 H 06/17/18 06/17/18 12:52 17:24 Neut % (Auto) [place] % (Auto) [place] # (Auto) APTT 60.8 H D D-Dimer Quant (PE/DVT) BUN Creatinine Estimated GFR Random Glucose Troponin I C-Reactive Protein 2.50 H Assessment and Plan - Plan 67yoF with complaints of bilateral leg pain, possible localization to the back. MRI L-spine reviewed and benign - no obvious sign of infection or compression CT L-spine also reviewed. Defer remainder of workup to medicine-- bilateral DVT scan and look for other causes. It is not entirely clear whether this is coming from her back but the imaging is negative thus far, and exam not convincing for spinal stenosis.
--- NOTE | 2018-06-17 18:09 | CT ---
EXAM DATE: 06/17/2018 5:47 PM EDT AGE/SEX: 67 years / Female INDICATIONS: Blood in stool CLINICAL DATA: This is the patient's initial encounter. Patient reports that signs and symptoms have been present for 1 day and indicates a pain score of 5/10. MEDICAL/SURGICAL HISTORY: Carcinoma, breast. Congestive heart failure. Heart Attack, Pulmonary Embolism . Coronary artery stent RADIATION DOSE: 8.79 CTDI (mGy) COMPARISON: [facility] [place], CT ABDOMEN & PELVIS W CONTRAST, 05/16/2018. . TECHNIQUE: Multiple contiguous axial images were obtained through the abdomen. Images were obtained using multiple row detector helical technique. Using automated exposure control and adjustment of the mA and/or kV according to patient size, radiation dose was kept as low as reasonably achievable to o btain optimal diagnostic quality images. DICOM format image data is available electronically for rev iew and comparison. FINDINGS: Lower Lungs: The visualized lower lungs are clear. Liver: The liver has a homogeneous density without space-occupying lesion except small stable cyst ri ght lobe of liver. There is no dilation of the biliary tree. Spleen: Homogeneous density without enlargement. Pancreas: Unremarkable without mass or calcification. Kidneys: Normal in size and shape. No evidence of mass or hydronephrosis. Adrenal Glands: Unremarkable. Aorta: The aorta and proximal iliac vessels are grossly unremarkable without aneurysmal dilation. Bowel/Mesentery: The bowel loops are grossly unremarkable. The cecum and sigmoid colon have a normal configuration. Abdominal Wall: Intact. Large dense calcification lower left breast tissue, clearly benign Retroperitoneum: No evidence of adenopathy in the retrocrural, para-aortic, or deep pelvic regions. Bladder: Contours are smooth. Reproductive Organs: No abnormal masses or calcifications seen. Inguinal: The inguinal region is unremarkable without evidence of adenopathy. Bony Structures: Unremarkable. CONCLUSION: 1. Unremarkable study. No evidence of bowel obstruction or bowel wall thickening. Solid organs are u nremarkable on this unenhanced study Electronically signed by: Mina Keating MD 06/17/2018 6:07 PM EDT
[2018-06-18] MEDS: Sod Chloride 0.9% Inj 1,000 ML IV.CONT SCH ×3 (04:16→20:38)
[2018-06-18 05:55] LABS: Baso % (Auto) 0.6 % (0.0-2.0); Eos # (Auto) 0.1 th/mm3 (0.0-0.4); Eos % (Auto) 2.4 % (0.0-4.0); Hematocrit 39.3 % (35.0-46.0); Hemoglobin 13.3 gm/dL (11.6-15.3); Lymph # (Auto) 1.2 th/mm3 (1.0-4.8); Lymph % (Auto) 26.8 % (9.0-44.0); Mean Corpuscular HGB Conc 33.9 % (32.0-36.0); Mean Corpuscular Hemoglobin 30.9 pg (27.0-34.0); Mean Corpuscular Volume 91.1 fL (80.0-100.0); Mean Platelet Volume 8.7 fL (7.0-11.0); Mono # (Auto) 0.6 th/mm3 (0.0-0.9); Mono % (Auto) 12.4 % (0.0-8.0); Neut # (Auto) 2.6 th/mm3 (1.8-7.7); Neut % (Auto) 57.8 % (16.0-70.0); Platelet Count 225 th/mm3 (150-450); Red Blood Count 4.32 mil/mm3 (4.00-5.30); Red Cell Distribution Width 15.3 % (11.6-17.2); White Blood Count 4.5 th/mm3 (4.0-11.0)
[2018-06-18 06:10] LABS: Calcium 8.7 mg/dL (8.5-10.1); Carbon Dioxide 26.2 meq/L (21.0-32.0)
[2018-06-18] MEDS: Furosemide 20 MG Tablet PO SCH (08:45)
--- NOTE | 2018-06-18 10:11 | P.PNGI ---
Subjective Interval history: Patient is sitting up in the bed to eat breakfast appetite good, no rectal bleeding and no further bowel movements Positive for epigastric tenderness to light palpation Physical Exam Vital signs: Vital Signs 06/17/18 11:58 06/17/18 16:00 06/17/18 20:00 Temperature 98.7 F 98.7 F 98.4 F Pulse Rate 84 83 79 Respiratory Rate 16 14 17 Blood Pressure 104/62 96/56 L 100/58 L Pulse Oximetry 93 L 98 95 06/18/18 00:00 06/18/18 04:00 06/18/18 07:41 Temperature 98.9 F 99 F 98.7 F Pulse Rate 77 80 74 Respiratory Rate 17 17 16 Blood Pressure 104/55 L 100/55 L 114/65 Pulse Oximetry 93 L 95 96 Intake & Output 06/17/18 06/18/18 06/18/18 18:59 06:59 18:59 Intake Total 600 / 600 Balance 600 / 600 Intake: IV 600 / 600 Heparin/D5W 25,000 U/250 mL 25, 300 / 300 000 unit In 250 ml @ Per Protocol IV.CONT TITRATE PRN Rx #:[id number] NS Inj 1,000 ML @ 100 mls/hr IV 300 / 300 .CONT .Q10H HUSEYIN Rx#:[id number] Other: # Voids 3 Date of Last Bowel Movement 06/17/18 06/17/18 # Bowel Movements 1 - Constitutional no acute distress - Routine HEENT Exam Head: Present: normocephalic (This a.m.) ENT: Present: mucous membranes dry - Routine Respiratory Exam Present: distant breath sounds (But no obvious wheezing or rhonchi) - Routine Abdominal Exam Present: soft, normoactive bowel sounds, tenderness (Epigastric) Results - Labs CBC & Chem 7: 06/18/18 04:45 06/18/18 04:45 Laboratory Results - last 24 hr 06/17/18 06/17/18 06/17/18 10:30 10:30 12:52 WBC RBC Hgb Hct MCV MCH MCHC RDW Plt Count MPV Neut % (Auto) Lymph % (Auto) [place] % (Auto) Eos % (Auto) Baso % (Auto) Neut # (Auto) Lymph # (Auto) [place] # (Auto) Eos # (Auto) Baso # (Auto) WBC Differential Differential Comment ESR APTT 60.8 H D Sodium Potassium Chloride Carbon Dioxide Anion Gap BUN Creatinine Estimated GFR Random Glucose Calcium Troponin I Less than 0.02 L C-Reactive Protein 2.48 H Cancelled 06/17/18 06/17/18 06/17/18 17:24 20:37 20:37 WBC RBC Hgb Hct MCV MCH MCHC RDW Plt Count MPV Neut % (Auto) Lymph % (Auto) [place] % (Auto) Eos % (Auto) Baso % (Auto) Neut # (Auto) Lymph # (Auto) [place] # (Auto) Eos # (Auto) Baso # (Auto) WBC Differential Differential Comment ESR 1 APTT 25.4 D Sodium Potassium Chloride Carbon Dioxide Anion Gap BUN Creatinine Estimated GFR Random Glucose Calcium Troponin I C-Reactive Protein 2.50 H 06/18/18 06/18/18 04:45 04:45 WBC 4.5 RBC 4.32 Hgb 13.3 Hct 39.3 MCV 91.1 MCH 30.9 MCHC 33.9 RDW 15.3 Plt Count 225 MPV 8.7 Neut % (Auto) 57.8 Lymph % (Auto) 26.8 [place] % (Auto) 12.4 H Eos % (Auto) 2.4 Baso % (Auto) 0.6 Neut # (Auto) 2.6 Lymph # (Auto) 1.2 [place] # (Auto) 0.6 Eos # (Auto) 0.1 Baso # (Auto) 0.0 WBC Differential . Differential Comment Auto diff final ESR APTT Sodium 139 Potassium 4.0 Chloride 105 Carbon Dioxide 26.2 Anion Gap 8 BUN 23 H Creatinine 1.25 H Estimated GFR 43 L Random Glucose 103 Calcium 8.7 Troponin I C-Reactive Protein - Imaging Impressions Abdomen/Pelvis CT 06/17/18 00:00 CONCLUSION: 1. Unremarkable study. No evidence of bowel obstruction or bowel wall thickening. Solid organs are unremarkable on this unenhanced study Lumbar Spine CT 06/17/18 00:00 CONCLUSION: No acute bony findings. Degenerative changes with canal stenosis which appears to be most significant at L3-4. This does not appear significantly changed from prior exam Lumbar Spine MRI 06/17/18 00:00 CONCLUSION: 1. There does appear to be degenerative disc disease at the L3-4 level with a broad-based diffuse annular bulge flattening the thecal sac. There is also posterior element hypertrophy causing a mild to moderate canal stenosis, similar to 2015 exam. On the sagittal images there is some clumping of the nerve roots similar to 2015. 2. On the axial images there is a small cyst within the thecal sac, anterolaterally on the left, at the L3-4 level but it shows no enhancement. 3. Degenerative facet disease mid lumbar spine showing mild enhancement. No evidence of metastatic disease Pulmonary Perfusion Imaging 06/17/18 00:00 CONCLUSION: No ventilation/perfusion mismatch is identified. Examination is low probability for PE. Venous Doppler Study 06/17/18 00:00 CONCLUSION: 1. The study is negative for bilateral lower extremity deep venous thrombosis. Assessment and Plan - Plan 67-year-old female who came into the hospital on 06/16/2018 with 2-day history of pleuritic left-sided chest pain as well as bilateral calf pain patient was placed on heparin drip. Patient also notes bilateral leg pain and problems with ambulation ,localization to the back evaluated further per neurosurgery. This a.m. patient noted some rectal bleeding, with large bright red/maroon blood clot and states the symptoms have been going on for at least 2-3 weeks. Patient also notes fatigue and tired sensation for the past 3 weeks unknown cause. Patient states recent colonoscopy in the advanced GI office, findings included no polyp but was called back for a possible tear in her intestines. patient was supposed to have lab work and come back to the GI office for follow- up but has not been able to. Patient also notes symptoms of dyspepsia worse before eating and with some nausea but no vomiting. Symptoms have worsened over the past few months; aggregating factors could be related to stress relieving factors none. Patient states no EGD in the past, and notes positive family history with both her parents having colon cancer. Heparin drip has been DC'd for now. Patient also notes history of coronary artery disease and HI and initially was placed on Brilinta and later changed to Xarelto. Patient states no Xarelto in the past 2 months but has been taking a baby aspirin. Current labs reviewed showed hemoglobin 12.9, WBC count 7, PT/INR 1.1, C- reactive protein 2.48, bilirubin and LFTs are normal patient denies any history of alcohol or tobacco use, no acute abdominal pain except for occasional lower abdominal cramping with defecation, no constipation no diarrhea, no fever. Gastroenterology has been consulted to assist with her rectal bleeding symptoms and plan of care for GI. Rectal bleeding, onset approximately 2-3 weeks ago, noted with defecation bright red/maroon large clots. Recent colonoscopy in the GI office unknown date but states no polyps, but was called for possible intestinal tear with bleeding. Was not able to come back in for reevaluation Patient concerned any intestinal bleed could be related to physical trauma from this past July 2018. Dyspepsia worsening over the past few months nausea especially before eating food, no relieving factors. No previous EGD Positive family history both parents colon cancer Current labs reviewed hemoglobin 12.9 WBC count 7 PT/INR 1.1, CRP 2.48, bilirubin LFTs normal. Patient also struggling with 2-day worsening of pleuritic left-sided chest pain as well as bilateral calf pain and generalized weakness in her legs bilateral. Patient's being worked up per neurosurgery consult and hospitalist. Was initially placed on heparin drip but has now been DC'd 06/18/2018 call the office for advanced GI but no record of recent colonoscopy. Last colonoscopy was done here at [place] on 01/30/[address] Braun. Findings include. 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, descending colon, and ascending colon Medium sized linear half-circumferential colitis was found in the descending colon and at the splenic flexure; The mucosa was ulcerated and edematous; multiple biopsies were performed using cold forceps Two sessile polyps ranging between 3-5mm in size were found in the ascending colon; polypectomy was performed with cold forceps A medium sized sessile polyp was found in the transverse colon; polypectomy was performed with a cold snare medium sized sessile polyp was found in the sigmoid colon; polypectomy was performed with a cold snare Large internal hemorrhoids Recommendations was for return colonoscopy in 3 years, no seeds nuts or popcorn , high-fiber diet Currently patient has no further bowel movements and no further rectal bleeding since 06/17/2018. Not sure of any intestinal tear, could have gotten a call from some of the office?, Poor historian Epigastric tenderness to light palpation with symptoms of dyspepsia Patient will need EGD, if further rectal bleeding will need colonoscopy or possible bleeding scan. Will need hospitalist neurosurgery clearance Will work with hospitalist and neurosurgery for their recommendations of patient 's lower extremity weakness. Currently patient states she cannot stand without holding on to something for support, current hemoglobin 13.3 currently has no obvious bleeding. Aggregating factor to any rectal bleeding could have been heparin drip and patient's large internal hemorrhoids Plan Diet cardiac Continue PPI IV Bowel regimen daily for soft stools Bowel regimen as needed Monitor for any obvious rectal bleeding strict intake and output Further recommendations to follow Patient was seen per myself and Dr. Garber, note was written on his behalf
--- NOTE | 2018-06-18 10:35 | P.PN ---
Subjective Interval history: In bed appears in nad Imaging reviewed with the patient and discussed changing pain meds. I reviewed E Kathye, patient is following with Dr Baca at [facility] who is prescribing pain medications and ;last prescription was on 05/30/18. Restart home meds for pain as no significant disease on imaging. Patient also complaints of nausea but did not vomit. No more bleeding per rectum however did not have another BM since yesterday. No fever or chills. No abd pain. Says she is still wit LE weakness. Physical Exam Vital signs: Vital Signs 06/17/18 11:58 06/17/18 16:00 06/17/18 20:00 Temperature 98.7 F 98.7 F 98.4 F Pulse Rate 84 83 79 Respiratory Rate 16 14 17 Blood Pressure 104/62 96/56 L 100/58 L Pulse Oximetry 93 L 98 95 06/18/18 00:00 06/18/18 04:00 06/18/18 07:41 Temperature 98.9 F 99 F 98.7 F Pulse Rate 77 80 74 Respiratory Rate 17 17 16 Blood Pressure 104/55 L 100/55 L 114/65 Pulse Oximetry 93 L 95 96 Intake & Output 06/17/18 06/18/18 06/18/18 18:59 06:59 18:59 Intake Total 600 / 600 Balance 600 / 600 Intake: IV 600 / 600 Heparin/D5W 25,000 U/250 mL 25, 300 / 300 000 unit In 250 ml @ Per Protocol IV.CONT TITRATE PRN Rx #:[id number] NS Inj 1,000 ML @ 100 mls/hr IV 300 / 300 .CONT .Q10H HUSEYIN Rx#:[id number] Other: # Voids 3 Date of Last Bowel Movement 06/17/18 06/17/18 # Bowel Movements 1 Narrative: GENERAL: Patient sitting up in bed. Appears uncomfortable due to back pain. Alert and oriented x3. CARDIOVASCULAR: Regular rate and rhythm. RESPIRATORY: No accessory muscle use. Clear to auscultation. Breath sounds equal bilaterally. GASTROINTESTINAL: Abdomen soft, non-tender, nondistended. Hepatic and splenic margins not palpable. MUSCULOSKELETAL: Extremities without clubbing, cyanosis, or edema. No obvious deformities. NEUROLOGICAL: Awake and alert. No obvious cranial nerve deficits. Motor grossly within normal limits. Five out of 5 muscle strength in the arms and legs. Reflexes equal and symmetric normal speech. PSYCHIATRIC: Appropriate mood and affect; insight and judgment normal. Results - Labs CBC & Chem 7: 06/18/18 04:45 06/18/18 04:45 Laboratory Results - last 24 hr 06/17/18 06/17/18 06/17/18 10:30 10:30 12:52 WBC RBC Hgb Hct MCV MCH MCHC RDW Plt Count MPV Neut % (Auto) Lymph % (Auto) [place] % (Auto) Eos % (Auto) Baso % (Auto) Neut # (Auto) Lymph # (Auto) [place] # (Auto) Eos # (Auto) Baso # (Auto) WBC Differential Differential Comment ESR APTT 60.8 H D Sodium Potassium Chloride Carbon Dioxide Anion Gap BUN Creatinine Estimated GFR Random Glucose Calcium Troponin I Less than 0.02 L C-Reactive Protein 2.48 H Cancelled 06/17/18 06/17/18 06/17/18 17:24 20:37 20:37 WBC RBC Hgb Hct MCV MCH MCHC RDW Plt Count MPV Neut % (Auto) Lymph % (Auto) [place] % (Auto) Eos % (Auto) Baso % (Auto) Neut # (Auto) Lymph # (Auto) [place] # (Auto) Eos # (Auto) Baso # (Auto) WBC Differential Differential Comment ESR 1 APTT 25.4 D Sodium Potassium Chloride Carbon Dioxide Anion Gap BUN Creatinine Estimated GFR Random Glucose Calcium Troponin I C-Reactive Protein 2.50 H 06/18/18 06/18/18 04:45 04:45 WBC 4.5 RBC 4.32 Hgb 13.3 Hct 39.3 MCV 91.1 MCH 30.9 MCHC 33.9 RDW 15.3 Plt Count 225 MPV 8.7 Neut % (Auto) 57.8 Lymph % (Auto) 26.8 [place] % (Auto) 12.4 H Eos % (Auto) 2.4 Baso % (Auto) 0.6 Neut # (Auto) 2.6 Lymph # (Auto) 1.2 Kent # (Auto) 0.6 Eos # (Auto) 0.1 Baso # (Auto) 0.0 WBC Differential . Differential Comment Auto diff final ESR APTT Sodium 139 Potassium 4.0 Chloride 105 Carbon Dioxide 26.2 Anion Gap 8 BUN 23 H Creatinine 1.25 H Estimated GFR 43 L Random Glucose 103 Calcium 8.7 Troponin I C-Reactive Protein - Imaging Impressions Abdomen/Pelvis CT 06/17/18 00:00 CONCLUSION: 1. Unremarkable study. No evidence of bowel obstruction or bowel wall thickening. Solid organs are unremarkable on this unenhanced study Lumbar Spine CT 06/17/18 00:00 CONCLUSION: No acute bony findings. Degenerative changes with canal stenosis which appears to be most significant at L3-4. This does not appear significantly changed from prior exam Lumbar Spine MRI 06/17/18 00:00 CONCLUSION: 1. There does appear to be degenerative disc disease at the L3-4 level with a broad-based diffuse annular bulge flattening the thecal sac. There is also posterior element hypertrophy causing a mild to moderate canal stenosis, similar to 2015 exam. On the sagittal images there is some clumping of the nerve roots similar to 2015. 2. On the axial images there is a small cyst within the thecal sac, anterolaterally on the left, at the L3-4 level but it shows no enhancement. 3. Degenerative facet disease mid lumbar spine showing mild enhancement. No evidence of metastatic disease Pulmonary Perfusion Imaging 06/17/18 00:00 CONCLUSION: No ventilation/perfusion mismatch is identified. Examination is low probability for PE. Venous Doppler Study 06/17/18 00:00 CONCLUSION: 1. The study is negative for bilateral lower extremity deep venous thrombosis. Assessment and Plan - Plan Acute onset pleuritic left-sided chest pain Suspected pulmonary embolism. Elevated D Dimer. Due to acute kidney injury, patient had VQ scan, no PE. Narcotics for pain control change to normo PO as need and morphine IV for breakthrough pain DC heparin drip as no PE and also patient now with rectal bleeding Rectal bleeding DC heparin. Consulted GI So far HGB has been stable, apparently patient has a h/o rectal bleeding after she had colonoscopy done and was told she has a tear. Discussed at length with the patient increased risk of bleeding with use of NSAIDS and other anticoagulants. Heparin was DCd yesterday. GI is ff as well Bilateral leg pain. Back pain. Patient denies dimitrios weakness, however ambulation is limited secondary to pain. Poss lumbar spinal stenosis, r/o infectious process like abscess vs diskitis. MRI and CT spine reviewed and findings discussed with thep atient. Also imaging reviewed by neurosurgery not significant findings. neurosurgery signed off. Ultrasound to rule out DVT reviewed and discussed with the patient, there is no DVT CT noncontrast to evaluate for lumbar spinal stenosis which was seen on previous imaging last month. Neurosurgery consulted, appreciate recommendations. neurosurgery signed off I reviewed Paty Suarez, patient is following with Dr Baca at [facility] who is prescribing pain medications and last prescription was on 05/30/18. Restart home meds for pain as no significant disease on imaging. Patient also complaints of nausea but did not vomit. Will not give additiobnal pain meds at pr as patient has a recent prescription by Dr Baca. Acute kidney injury. Creatinine 1.7 from 1.1. Likely secondary to nausea and vomiting. Continue gentle IV fluids and monitor. Kidney function imprpved significantly however not at basline. Patient with nausea but no vomiting. Will continue IVF, encourage PO intake, if kidney function back at baseline and no nausea, poss DC tomorrow , discussed with the patient. Hyperlipidemia. Chronic. Continue home medication CHF. Chronic. Continue home medications. Discussed Condition With: patient, nurse
--- NOTE | 2018-06-18 10:45 | P.PNNS ---
Subjective Interval history: Pt resting in bed. She states her pain was acute onset starting on Monday when she got out of bed. She states she has low back pain and when she tries to stand gets shooting pain in the anterior shins bilaterally that makes her have to sit or lay down or she falls. She denies any paresthesias in LEs. No bowel or bladder incontinence. She states she has weakness in her LEs. Physical Exam Vital signs: Vital Signs 06/17/18 11:58 06/17/18 16:00 06/17/18 20:00 Temperature 98.7 F 98.7 F 98.4 F Pulse Rate 84 83 79 Respiratory Rate 16 14 17 Blood Pressure 104/62 96/56 L 100/58 L Pulse Oximetry 93 L 98 95 06/18/18 00:00 06/18/18 04:00 06/18/18 07:41 Temperature 98.9 F 99 F 98.7 F Pulse Rate 77 80 74 Respiratory Rate 17 17 16 Blood Pressure 104/55 L 100/55 L 114/65 Pulse Oximetry 93 L 95 96 Intake & Output 06/17/18 06/18/18 06/18/18 18:59 06:59 18:59 Intake Total 600 / 600 Balance 600 / 600 Intake: IV 600 / 600 Heparin/D5W 25,000 U/250 mL 25, 300 / 300 000 unit In 250 ml @ Per Protocol IV.CONT TITRATE PRN Rx #:[id number] NS Inj 1,000 ML @ 100 mls/hr IV 300 / 300 .CONT .Q10H HUSEYIN Rx#:[id number] Other: # Voids 3 Date of Last Bowel Movement 06/17/18 06/17/18 # Bowel Movements 1 - Constitutional no acute distress (Resting in bed.) - Routine HEENT Exam Head: Present: normocephalic, atraumatic Eye: Present: PERRL. Absent: conjunctival icterus ENT: Present: oropharynx clear - Routine Neck Exam Present: supple - Routine Respiratory Exam Present: CTA bilaterally. Absent: respiratory distress, rhonchi, wheezes - Routine Cardiovascular Exam Present: RRR, S1, S2. Absent: murmur - Routine Abdominal Exam Present: soft, normoactive bowel sounds. Absent: tenderness, distended, firm - Routine Skin Exam Absent: cyanosis, erythema (No erythema in LEs. Mild scattered areas of ecchymotic skin change.) - Routine Neurological Exam Present: alert, oriented X3, moving all extremities, normal speech. Absent: sensory deficit (She denies any numbness in LEs on exam.), motor deficit (She has good strength on exam but complains of subjective weakness but may be related to the pain although she states she feels weak.) - Routine Psychiatric Exam Present: normal affect, cooperative. Absent: depressed, anxious, agitated Assessment and Plan - Assessment (1) Chest pain, rule out acute myocardial infarction Code(s): R07.9 - Chest pain, unspecified Status: Acute (2) Chest pain, atypical Code(s): R07.89 - Other chest pain Status: Acute (3) Coronary artery disease Code(s): I25.10 - Atherosclerotic heart disease of [place] coronary artery without angina pectoris Status: Chronic Qualifiers: Coronary Disease-Associated Artery/Lesion type: [place] artery Associated angina: angina presence unspecified (4) Congestive heart failure Code(s): I50.9 - Heart failure, unspecified Status: Acute (5) Abdominal pain Code(s): R10.9 - Unspecified abdominal pain Status: Acute Qualifiers: Abdominal location: right upper quadrant Qualified Code(s): R10.11 - Right upper quadrant pain (6) Leg pain, bilateral Code(s): M79.604 - Pain in right leg; M79.605 - Pain in left leg Status: Acute - Plan A: 67yoF with complaints of bilateral leg pain anterior shins equally as bad without paresthesias. MRI L-spine reviewed and benign - no obvious sign of infection or compression CT L-spine also reviewed. Defer remainder of workup to medicine-- bilateral DVT scan and look for other causes. It is not entirely clear whether this is coming from her back but the imaging is negative thus far, and exam not convincing for spinal stenosis. P: MRI has been reviewed by Dr. Patrick and Dr. Livingston and does not reveal any significant spinal stenosis to recommend surgical intervention. No surgery indicated. We will sign off.
[2018-06-18] MEDS ORDERED: Metoclopramide Inj 10 MG in Sodium Chlor 0.9% Inj 50 ML IV.SIG ONE (23:00)
[2018-06-19] MEDS: Sod Chloride 0.9% Inj 1,000 ML IV.CONT SCH ×2 (03:04→06:38)
[2018-06-19 03:37] VITALS: O2SAT 96
[2018-06-19 08:09] VITALS: BP 126/71; PULSE 88; RESP 18
[2018-06-19 08:34] VITALS: TEMP 99.4
[2018-06-19] MEDS: Furosemide 20 MG Tablet PO SCH (10:09)
--- NOTE | 2018-06-19 10:53 | P.DS ---
Date of admission: 06/17/18 15:38 Primary care physician: Kaz Burroughs DO Brief History from admission: 67-year-old female with a history of CHF, pulmonary embolism, chronic pain who presents with a 2-day history of progressively worsening pleuritic left-sided chest pain, as well as bilateral calf pain. Left-sided chest pain became acutely worse around 2 PM on 06/16. She also reports a 2-day history of nausea without vomiting. Denies any fevers, chills, dysuria, diarrhea, constipation. DS: Diagnosis - Discharge Diagnosis (1) Chest pain, rule out acute myocardial infarction Status: Acute (2) Chest pain, atypical Status: Acute (3) Coronary artery disease Status: Chronic (4) Congestive heart failure Status: Acute (5) Abdominal pain Status: Acute (6) Leg pain, bilateral Status: Acute DS: Summary Hospital Course: Acute onset pleuritic left-sided chest pain Suspected pulmonary embolism. Elevated D Dimer. Due to acute kidney injury, patient had VQ scan, no PE. Also No DVT per doppler US. Narcotics for pain control change to normo PO as need and morphine IV for breakthrough pain DC heparin drip as no PE and also patient reported rectal bleeding, however no blood was seen by KETTLE SKIMMER or nurse. Rectal bleeding DC heparin. Consulted GI So far HGB has been stable, apparently patient has a h/o rectal bleeding after she had colonoscopy done and was told she has a tear. Discussed at length with the patient increased risk of bleeding with use of NSAIDS and other anticoagulants. Heparin was DCd yesterday. GI is ff as well Bilateral leg pain. Back pain. Patient denies dimitrios weakness, however ambulation is limited secondary to pain. Poss lumbar spinal stenosis, r/o infectious process like abscess vs diskitis. MRI and CT spine reviewed and findings discussed with thep atient. Also imaging reviewed by neurosurgery not significant findings. neurosurgery signed off. Ultrasound to rule out DVT reviewed and discussed with the patient, there is no DVT CT noncontrast to evaluate for lumbar spinal stenosis which was seen on previous imaging last month. Neurosurgery consulted, appreciate recommendations. neurosurgery signed off I reviewed E Erick, patient is following with Dr Baca at [facility] who is prescribing pain medications and last prescription was on 05/30/18. Restart home meds for pain as no significant disease on imaging. Patient also complaints of nausea but did not vomit. Will not give additional pain meds at dc as patient has a recent prescription by Dr Baca. Acute kidney injury. Creatinine 1.7 from 1.1. Likely secondary to nausea and vomiting. Continue gentle IV fluids and monitor. Kidney function imprpved significantly however not at basline. Patient with nausea but no vomiting. Will continue IVF, encourage PO intake, if kidney function back at baseline and no nausea, poss DC tomorrow , discussed with the patient. Kidney function imprpved significantly,[atietn with adequate PO intake. She is however refusing repeat blood work. Will have repeat BMP as OP and to follow up as OP with PCP and consultants. Hyperlipidemia. Chronic. Continue home medication CHF. Chronic. Stable. Continue home medications. Improved. PT recommends PT at DC. Walker ordered. Cleared by consultants for DC. Patient to follow up as OP with PCP and consultants. - Time Spent with Patient Total time spent providing and/or coordinating discharge services: Greater than 30 minutes - Quality: VTE Deep Vein Thrombosis/Pulmonary Embolism Present on Admission: Yes Exam Vital signs: Vital Signs 06/18/18 11:37 06/18/18 16:00 06/18/18 20:00 Temperature 98.6 F 99.0 F 98.6 F Pulse Rate 86 81 77 Respiratory Rate 16 16 16 Blood Pressure 133/74 93/54 L 118/69 Pulse Oximetry 97 96 94 L 06/18/18 21:10 06/18/18 23:48 06/19/18 02:40 Temperature 98.9 F Pulse Rate 80 Respiratory Rate 16 16 16 Blood Pressure 103/59 L Pulse Oximetry 94 L 06/19/18 03:35 06/19/18 08:00 Temperature 97.6 F 99.4 F Pulse Rate 75 88 Respiratory Rate 16 18 Blood Pressure 115/58 L 126/71 Pulse Oximetry 96 96 Intake & Output 06/18/18 06/19/18 06/19/18 18:59 06:59 18:59 Intake Total 1000 / 1000 1532 / 1532 Balance 1000 / 1000 1532 / 1532 Intake: IV 1000 / 1000 1052 / 1052 NS Inj 1,000 ML @ 100 mls/hr IV 1000 / 1000 1000 / 1000 .CONT .Q10H HUSEYIN Rx#:[id number] Reglan Inj 10 MG In NS Inj 50 52 / 52 ML @ 104 mls/hr IV.SIG ONCE ONE Rx#:[id number] Oral 480 / 480 Other: # Voids 3 Date of Last Bowel Movement 06/17/18 06/17/18 Narrative: GENERAL: Patient sitting up in bed. Appears uncomfortable due to back pain. Alert and oriented x3. CARDIOVASCULAR: Regular rate and rhythm. RESPIRATORY: No accessory muscle use. Clear to auscultation. Breath sounds equal bilaterally. GASTROINTESTINAL: Abdomen soft, non-tender, nondistended. Hepatic and splenic margins not palpable. MUSCULOSKELETAL: Extremities without clubbing, cyanosis, or edema. No obvious deformities. NEUROLOGICAL: Awake and alert. No obvious cranial nerve deficits. Motor grossly within normal limits. Five out of 5 muscle strength in the arms and legs. Reflexes equal and symmetric normal speech. PSYCHIATRIC: Appropriate mood and affect; insight and judgment normal. Results Procedures completed during hospitalization: none - Impressions ITS Impressions Chest X-Ray 06/16/18 22:47 CONCLUSION: The lungs are clear. Abdomen/Pelvis CT 06/17/18 00:00 CONCLUSION: 1. Unremarkable study. No evidence of bowel obstruction or bowel wall thickening. Solid organs are unremarkable on this unenhanced study Head CT 06/17/18 00:00 CONCLUSION: 1. No acute findings in the brain. 2. Left caudate the lacunar infarcts unchanged from 2015. . Lumbar Spine CT 06/17/18 00:00 CONCLUSION: No acute bony findings. Degenerative changes with canal stenosis which appears to be most significant at L3-4. This does not appear significantly changed from prior exam Lumbar Spine MRI 06/17/18 00:00 CONCLUSION: 1. There does appear to be degenerative disc disease at the L3-4 level with a broad-based diffuse annular bulge flattening the thecal sac. There is also posterior element hypertrophy causing a mild to moderate canal stenosis, similar to 2015 exam. On the sagittal images there is some clumping of the nerve roots similar to 2015. 2. On the axial images there is a small cyst within the thecal sac, anterolaterally on the left, at the L3-4 level but it shows no enhancement. 3. Degenerative facet disease mid lumbar spine showing mild enhancement. No evidence of metastatic disease Pulmonary Perfusion Imaging 06/17/18 00:00 CONCLUSION: No ventilation/perfusion mismatch is identified. Examination is low probability for PE. Venous Doppler Study 06/17/18 00:00 CONCLUSION: 1. The study is negative for bilateral lower extremity deep venous thrombosis. Discharge Plan - Discharge Disposition Patient Disposition: Disch /Home Health Service - Discharge Condition Condition: Stable - Discharge Order Discharge Orders: Discharge Order (Routine); Ordered 06/19/18 Ordered By: Maite Flores - Discharge Details Anticipated Discharge Date: 06/19/18 - Physicians Team Primary Care Provider: Kaz Burroughs Attending Provider: Maite Flores Other Providers: Samy Patrick MD ; Ramo Garber MD
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
--- NOTE | 2018-06-19 13:32 | P.DCO ---
- Diagnosis (1) Coronary artery disease Status: Chronic (2) Leg pain, bilateral Status: Acute - Physical Therapy Order: Evaluate and treat - Home Health Nursing Order: Medical education, Signs/symptoms of disease process, Medication education-adverse effect, Nursing assessment with vital signs - Case Management Consult Yes - Certification I have seen patient Patricia Jung on 06/19/18. My clinical findings support the need for the requested home health care services because: Limited mobility due to disease progression, Deconditioned with increased weakness I certify that my clinical findings support that this patient is homebound because: Post-op weakness, Impaired cognitive ability/safety (1) Coronary artery disease Qualifiers: Coronary Disease-Associated Artery/Lesion type: [place] artery Associated angina: angina presence unspecified
== END 2018-06-19 15:17 | disposition home health service (06) ==
LOC: NEPE 22:21 → NEDA 22:21 → NEPFCDU 06-17 02:17
PROVIDERS: ADMIT Hospitalist; ATTEND Hospitalist